=== PATIENT | male | born 1970 | race Hispanic/Latino ===

== ENCOUNTER 2020-07-26 19:00 | Observation (INO) | payer OTHER ==
[~2020-07-26 19:00] MED LIST: INSULIN REGULAR, HUMAN 100 UNITS/1 ML ONE
[2020-07-26 20:31] LABS: Basophils # (Auto) 0.1 K/mm3 (0.0-0.1); Basophils % (Auto) 0.8 % (0.0-1.8); Eosinophils # (Auto) 0.1 K/mm3 (0.0-0.4); Eosinophils % (Auto) 1.9 % (0.0-4.3); Hemoglobin 11.6 gm/dl (11.8-15.2); Lymphocytes # (Auto) 1.2 K/mm3 (1.2-5.4); Lymphocytes % (Auto) 15.2 % (13.4-35.0); Mean Corpuscular HGB Conc 34 % (32-34); Mean Corpuscular Volume 90 fl (84-94); Monocytes # (Auto) 0.9 K/mm3 (0.0-0.8); Monocytes % (Auto) 10.9 % (0.0-7.3); Platelet Count 311 K/mm3 (140-440); Red Blood Count 3.77 M/mm3 (3.65-5.03); Red Cell Distribution Width 13.2 % (13.2-15.2)
--- NOTE | 2020-07-26 20:44 | XRay Report ---
XR chest routine 2V INDICATION / CLINICAL INFORMATION: Chest Pain. COMPARISON: 03/11/2020 FINDINGS: SUPPORT DEVICES: None. HEART /PULMONARY VASCULATURE: No significant abnormality. LUNGS / PLEURA: No significant pulmonary or pleural abnormality. No pneumothorax. ADDITIONAL FINDINGS: No significant additional findings. IMPRESSION: 1. No acute findings. Signer Name: Kasi Ware MD Signed: 07/26/2020 8:39 PM Workstation Name: [id number]
[2020-07-26 20:59] LABS: Alanine Aminotransferase 27 units/L (7-56); Albumin 4.3 g/dL (3.9-5); BUN/Creatinine Ratio 16; Blood Urea Nitrogen 33 mg/dL (9-20); Calcium 9.5 mg/dL (8.4-10.2); Hemolysis Index 9
--- NOTE | 2020-07-26 21:43 | Emergency Department Report ---
ED Chest Pain HPI - General Chief Complaint: Chest Pain Stated Complaint: CHEST PAIN Time Seen by Provider: 07/26/20 21:04 Source: patient Mode of arrival: Ambulatory Limitations: No Limitations - History of Present Illness Initial Comments: 49-year-old male, history of hypertension, hypercholesterolemia, presents to ED with chest pain. Patient states he was at work and began to experience chest pain around 2:30 PM. Patient states pain is located in the substernal area, pressure-like in nature, nonradiating. He reports some associated palpitations, shortness of breath, nausea, and diaphoresis. Patient denies any leg pain or swelling. Patient states at some point, he began to feel dizzy and lightheaded so he went to his truck to check his blood pressure. Patient reports his blood pressure was 178/110, and his heart rate was elevated. Patient states he normally takes clonidine, amlodipine, lisinopril, and HCTZ. Patient states he had already taken these medications this morning, however, when he saw that his blood pressure was elevated, he took another dose of all 4 of his BP meds. Patient states chest pain is very minimal right now. He denies any tobacco or drug use. He denies any Covid-like symptoms. MD Complaint: chest pain -: This afternoon Onset: during rest Pain Location: substernal Pain Radiation: none Severity: moderate Quality: pressure Consistency: constant Improves With: nothing Worsens With: nothing re: nausea, diaphoresis, dyspnea. denies: vomting Other Symptoms: palpitations. denies: cough, fever, leg swelling - Related Data Previous Rx's Medication Instructions Recorded Last Taken Type Azithromycin [Zithromax Z-MAGGIE] 250 mg PO ONCE #1 pack 03/11/20 Unknown Rx Prednisone [predniSONE 10 mg 10 mg PO .TAPER #1 tab.ds.pk 03/11/20 Unknown Rx (6-Day Pack, 21 Tabs)] Promethazine [Phenergan] 25 mg PO Q6HR PRN #20 tab 03/11/20 Unknown Rx Allergies Allergy/AdvReac Type Severity Reaction Status Date / Time No Known Allergies Allergy Unverified 03/11/20 14:40 Heart Score - HEART Score History: Moderately suspicious EKG: Normal Age: 45-65 Risk factors: 1-2 risk factors Troponin: 1-3x normal limit HEART Score: 4 ED Review of Systems ROS: Stated complaint: CHEST PAIN Other details as noted in HPI Comment: All other systems reviewed and negative Constitutional: denies: fever Respiratory: shortness of breath. denies: cough Cardiovascular: chest pain, palpitations Gastrointestinal: nausea. denies: vomiting Musculoskeletal: other (Denies leg pain or swelling) ED Past Medical Hx - Past Medical History Hx Hypertension: Yes Additional medical history: HLD - Surgical History Past Surgical History?: Yes Additional Surgical History: shoulder, melanoma removed - Social History Smoking Status: Never Smoker - Medications Home Medications: Home Medications Medication Instructions Recorded Confirmed Last Taken Type Azithromycin [Zithromax Z-MAGGIE] 250 mg PO ONCE #1 pack 03/11/20 Unknown Rx Prednisone [predniSONE 10 mg 10 mg PO .TAPER #1 tab.ds.pk 03/11/20 Unknown Rx (6-Day Pack, 21 Tabs)] Promethazine [Phenergan] 25 mg PO Q6HR PRN #20 tab 03/11/20 Unknown Rx ED Physical Exam - General Limitations: No Limitations General appearance: alert, in no apparent distress - Head Head exam: Present: atraumatic, normocephalic - Eye Eye exam: Present: normal appearance, EOMI - ENT ENT exam: Present: mucous membranes moist - Neck Neck exam: Present: normal inspection - Respiratory Respiratory exam: Present: normal lung sounds bilaterally. Absent: respiratory distress - Cardiovascular Cardiovascular Exam: Present: regular rate, normal rhythm - GI/Abdominal GI/Abdominal exam: Present: soft. Absent: distended, tenderness - Extremities Exam Extremities exam: Present: normal inspection - Neurological Exam Neurological exam: Present: alert, oriented X3 - Psychiatric Psychiatric exam: Present: normal affect, normal mood - Skin Skin exam: Present: warm, dry, intact, normal color ED Course Vital Signs 07/26/20 07/26/20 07/26/20 19:04 21:39 21:41 Temperature 97.4 F L Pulse Rate 94 H 74 Pulse Rate [ Bilateral] Respiratory 14 14 14 Rate Respiratory Rate [Bilateral ] Blood Pressure 98/60 77/41 90/51 Blood Pressure [Left] O2 Sat by Pulse 98 96 Oximetry 07/26/20 07/26/20 07/26/20 22:03 22:30 23:00 Temperature Pulse Rate 79 Pulse Rate [ Bilateral] Respiratory 17 Rate Respiratory Rate [Bilateral ] Blood Pressure 87/43 98/58 98/58 Blood Pressure [Left] O2 Sat by Pulse Oximetry 07/26/20 07/26/20 07/26/20 23:20 23:30 23:35 Temperature 98.1 F Pulse Rate 80 108 H Pulse Rate [ 80 Bilateral] Respiratory 11 L 15 Rate Respiratory 22 Rate [Bilateral ] Blood Pressure 103/52 Blood Pressure 100/58 [Left] O2 Sat by Pulse 98 Oximetry 07/26/20 07/26/20 07/26/20 23:40 23:50 23:57 Temperature 98.1 F Pulse Rate 146 H 139 H 123 H Pulse Rate [ Bilateral] Respiratory 15 18 18 Rate Respiratory Rate [Bilateral ] Blood Pressure 100/58 127/56 Blood Pressure 127/56 [Left] O2 Sat by Pulse 97 99 Oximetry 07/27/20 07/27/20 07/27/20 00:00 00:10 00:20 Temperature Pulse Rate 116 H 98 H 102 H Pulse Rate [ Bilateral] Respiratory 17 18 15 Rate Respiratory Rate [Bilateral ] Blood Pressure 103/44 112/46 103/52 Blood Pressure [Left] O2 Sat by Pulse 99 86 93 Oximetry 07/27/20 00:30 Temperature Pulse Rate 85 Pulse Rate [ Bilateral] Respiratory 13 Rate Respiratory Rate [Bilateral ] Blood Pressure 95/46 Blood Pressure [Left] O2 Sat by Pulse 93 Oximetry ED Medical Decision Making - Lab Data Result diagrams: 07/26/20 20:20 07/26/20 21:28 - EKG Data -: EKG Interpreted by Ne EKG shows normal: sinus rhythm, axis, intervals, QRS complexes, ST-T waves Rate: normal - EKG Data Interpretation: no acute changes - Radiology Data Radiology results: report reviewed, image reviewed - Medical Decision Making 49-year-old male presents the ED with chest pain. Patient happens to be hypotensive secondary to taking double dose of all 4 of his antihypertensives. EKG shows no ST changes. Troponin is within normal limits. Chest x-ray is normal. Labs do show evidence of acute renal failure with creatinine elevated compared to 4 months ago. He has been given 2 L bolus of IV fluids for his hypotension and acute renal failure. Patient also has potassium of 6.0, repeat confirms hyperkalemia at 5.8. Patient given treatment for hyperkalemia including albuterol, insulin, D50, Kayexalate, calcium gluconate. 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 Patient will be admitted to Dr. Gonzalez, hospitalist for further management - Differential Diagnosis ACS, renal failure, infection Critical Care Time: Yes Critical care time in (mins) excluding proc time.: 35 Critical care attestation.: If time is entered above; I have spent that time in minutes in the direct care of this critically ill patient, excluding procedure time. Critical Care Time: 35 min ED Disposition Clinical Impression: Hypotension, Chest pain, Hyperkalemia, Acute renal failure Disposition: 09 OP ADMIT IP TO THIS HOSP Is pt being admited?: Yes Condition: Stable Time of Disposition: 23:01
[2020-07-26] MEDS ORDERED: SODIUM CHLORIDE 0.9% 1000 ML 1,000 ML IV ONE ×2 (21:44→22:16)
[2020-07-26] MEDS ORDERED: INSULIN REGULAR, HUMAN 100 UNIT/ML 3ML VIAL IV ONE (22:17)
[2020-07-26] MEDS ORDERED: ALBUTEROL 2.5 MG/3 ML NEBU IH ONE (22:17)
[2020-07-26] MEDS ORDERED: CALCIUM GLUCONATE 1,000 MG in SODIUM CHLORIDE 0.9% 100 ML IV ONE (22:17)
[2020-07-26] MEDS ORDERED: DEXTROSE 50% IN WATER (25GM) 50 ML SYRINGE IV ONE (22:17)
[2020-07-26] MEDS ORDERED: SODIUM POLYSTYRENE 15 GM/60 ML ORAL LIQD PO ONE (22:17)
[2020-07-26] MEDS ORDERED: MORPHINE 2 MG/1 ML INJ ONE (23:39)
[2020-07-26] MEDS ORDERED: ONDANSETRON 4 MG/2 ML INJ ONE (23:52)
[2020-07-26] MEDS ORDERED: ALPRAZolam 0.25 MG TAB ONE (23:57)
[2020-07-26] MEDS ORDERED: ALPRAZolam 0.25 MG TAB PO STA (23:59)
[2020-07-26] MEDS ORDERED: ONDANSETRON 4 MG/2 ML INJ IV ONE (23:59)
[2020-07-27] MEDS ORDERED: SODIUM CHLORIDE 0.9% 1000 ML 1,000 ML IV ONE (00:11)
--- NOTE | 2020-07-27 00:11 | History and Physical Report ---
History of Present Illness Date of examination: 07/26/20 Date of admission: 07/26/20 23:02 Chief complaint: Chest Pain History of present illness: 49-year-old white male with known history of hypertension, hyperlipidemia presenting to the emergency room today complaining of chest pain. Chest pain is central status sometime this afternoon while at work. Pain is substernal, felt like pressure in nature. He had associated dizziness, shortness of breath, nausea and diaphoresis. He denies any palpitation, he denies any headache, no fever or chills, denies any sick contacts and no recent travel. Denies any contact with anyone with COVID-19. Patient indicates he has been compliant with his medications however when he rechecked his blood pressure while at work the blood pressure was said to be high with systolic of 178 and diastolic of 110. He therefore decided to take all his medications all over again. His medications include clonidine, amlodipine, lisinopril, and hydrochlorothiazide. Upon arrival in the emergency room patient was found to be hypotensive with systolic in the 90s and diastolic in the in the 50s. Patient received boluses of IV fluid was improvement in his blood pressure. Work-up in the emergency room so far reveals hyperkalemia of 6, elevated BUN and creatinine. EKG did not reveal any acute abnormality. Chest x-ray within normal limits. Patient has been placed on insulin and glucose, calcium gluconate and Kayexalate for his hyperkalemia. During the course of his stay in the emergency room patient became anxious and tachycardic. He states that he has a history of anxiety and takes klonopin at home. His repeat EKG shows sinus tachycardia. Patient has been admitted for chest pain, hyperkalemia and BETTIE. Past History Past Medical History: hypertension, hyperlipidemia Past Surgical History: Other (Melanoma removal, Shoulder Surgery) Social history: no significant social history Family history: CAD (Grand Mother of [place] at age 49), diabetes (Father had hypertension and D/mellitus,), hypertension (Both parents had hypertension.) Medications and Allergies Allergies Allergy/AdvReac Type Severity Reaction Status Date / Time No Known Allergies Allergy Unverified 03/11/20 14:40 Home Medications Medication Instructions Recorded Confirmed Last Taken Type Azithromycin [Zithromax Z-MAGGIE] 250 mg PO ONCE #1 pack 03/11/20 Unknown Rx Prednisone [predniSONE 10 mg 10 mg PO .TAPER #1 tab.ds.pk 03/11/20 Unknown Rx (6-Day Pack, 21 Tabs)] Promethazine [Phenergan] 25 mg PO Q6HR PRN #20 tab 03/11/20 Unknown Rx Review of Systems Constitutional: no fever, no chills Ears, nose, mouth and throat: no nasal congestion, no sore throat Cardiovascular: chest pain, shortness of breath Respiratory: shortness of breath, no cough Gastrointestinal: nausea, no abdominal pain, no vomiting, no diarrhea Genitourinary Male: no dysuria, no hematuria, no flank pain, no nocturia Musculoskeletal: no neck pain, no low back pain Integumentary: no rash, no pruritis Neurological: no headaches, no confusion Psychiatric: anxiety, no depression Exam - Constitutional Vitals: Temp Pulse Resp BP Pulse Ox 98.1 F 123 H 18 127/56 99 07/26/20 23:57 07/26/20 23:57 07/26/20 23:57 07/26/20 23:57 07/26/20 23:57 General appearance: Present: no acute distress, well-nourished - EENT Eyes: Present: PERRL, EOM intact. Absent: scleral icterus ENT: hearing intact, clear oral mucosa, dentition normal - Respiratory Respiratory effort: normal Respiratory: bilateral: CTA - Cardiovascular Rhythm: regular Heart Sounds: Present: S1 & S2. Absent: gallop, systolic murmur, diastolic murmur, rub - Extremities Extremities: no ischemia, pulses intact, pulses symmetrical, No edema, Full ROM Peripheral Pulses: within normal limits - Abdominal General gastrointestinal: Present: soft, non-tender, non-distended, normal bowel sounds. Absent: mass - Integumentary Integumentary: Present: clear, warm, dry. Absent: rash - Musculoskeletal Musculoskeletal: strength equal bilaterally - Psychiatric Psychiatric: appropriate mood/affect, intact judgment & insight, memory intact, cooperative - Neurologic Neurologic: CNII-XII intact, no focal deficits, moves all extremities HEART Score - HEART Score History: Moderately suspicious EKG: Non-specific Age: 45-65 Risk factors: 1-2 risk factors Troponin: Troponin T 0.011 ng/mL (0.00-0.029) 07/26/20 20:20 Troponin: < normal limit HEART Score: 4 Results - Labs CBC & Chem 7: 07/26/20 20:20 07/26/20 21:28 Labs: Abnormal lab results 07/26/20 07/26/20 07/26/20 Range/Units 20:20 20:20 21:28 Hgb 11.6 L (11.8-15.2) gm/dl Hct 34.0 L (35.5-45.6) % [place] % (Auto) 10.9 H (0.0-7.3) % [place] # (Auto) 0.9 H (0.0-0.8) K/mm3 Seg Neutrophils % 71.2 H (40.0-70.0) % Sodium 134 L (137-145) mmol/L Potassium 6.0 H 5.8 H (3.6-5.0) mmol/L BUN 33 H (9-20) mg/dL Creatinine 2.1 H (0.8-1.3) mg/dL AST 41 H (5-40) units/L Assessment and Plan - Patient Problems (1) Chest pain Current Visit: Yes Status: Acute Plan to address problem: We will place patient on telemetry. Will check serial cardiac enzymes. Patient placed on aspirin, sublingual nitroglycerin and IV morphine as needed for chest pain. We will continue to monitor EKG Consult to be placed to cardiology for evaluation and recommendation. 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 Patient will be promptly evaluated. (3) Hyperkalemia Current Visit: Yes Status: Acute Plan to address problem: Patient has had calcium gluconate, insulin and glucose and Kayexalate in the emergency room. Will monitor potassium levels. (4) Hypotension Current Visit: Yes Status: Acute Plan to address problem: Possibly secondary to intake multiple doses of his blood pressure medication. We will hold off on antihypertensive at this time and continue IV fluid. Will monitor vital signs closely. (5) DVT prophylaxis Current Visit: Yes Status: Acute Plan to address problem: Patient placed on subcutaneous Lovenox. (6) Full code status Current Visit: Yes Status: Acute
[2020-07-27] MEDS ORDERED: SODIUM CHLORIDE 0.9% 1000 ML 1,000 ML ONE (00:15)
[2020-07-27] MEDS ORDERED: NITROGLYCERIN 0.4 MG TAB SUBL SL PRN (00:17)
[2020-07-27] MEDS ORDERED: ONDANSETRON 4 MG/2 ML INJ IV PRN (00:17)
[2020-07-27] MEDS ORDERED: MORPHINE 2 MG/1 ML INJ IV PRN (00:17)
[2020-07-27] MEDS ORDERED: ACETAMINOPHEN 325 MG TAB PO PRN ×2 (00:17)
[2020-07-27] MEDS ORDERED: SODIUM CHLORIDE 0.9% 1000 ML 1,000 ML IV SCH (00:30)
[2020-07-27 02:37] LABS: Basophils % (Auto) 0.6 % (0.0-1.8); Eosinophils # (Auto) 0.2 K/mm3 (0.0-0.4); Eosinophils % (Auto) 2.6 % (0.0-4.3); Hematocrit 30.6 % (35.5-45.6); Hemoglobin 10.6 gm/dl (11.8-15.2); Lymphocytes % (Auto) 14.7 % (13.4-35.0); Mean Corpuscular HGB Conc 35 % (32-34); Mean Corpuscular Volume 90 fl (84-94); Monocytes # (Auto) 0.8 K/mm3 (0.0-0.8); Monocytes % (Auto) 11.9 % (0.0-7.3); Platelet Count 269 K/mm3 (140-440); Red Blood Count 3.38 M/mm3 (3.65-5.03); Red Cell Distribution Width 13.2 % (13.2-15.2)
[2020-07-27 03:47] LABS: BUN/Creatinine Ratio 14; Blood Urea Nitrogen 28 mg/dL (9-20); Calcium 8.9 mg/dL (8.4-10.2); Chol/HDL Ratio 10.47 %; HDL Cholesterol 19 mg/dL (40-59); Hemolysis Index 7; LDL Cholesterol,Direct TNR mg/dL (50-130)
[2020-07-27 09:10] VITALS: BP 109/61
--- NOTE | 2020-07-27 09:30 | Consultation ---
History of Present Illness Consult date: 07/27/20 Consult reason: chest pain History of present illness: 49 year old male presenting with retrosternal chest pain associated with dizziness. Pain started while at work. Pain is non-radiating. Patient has past medical history of hypertension. He was admitted with chest pain back Sep 2018 at [place] and received stress and echo - both were within normal limits. ECG here showing normal sinus rhythm and troponin negative x 2. Patient describes short ness of breath with exertion. Labs also pertinent for BETTIE and hyperkalemia. Past History Past Medical History: hypertension, hyperlipidemia Past Surgical History: Other (Melanoma removal, Shoulder Surgery) Social history: no significant social history Family history: CAD (Grand Mother of [place] at age 49), diabetes (Father had hypertension and D/mellitus,), hypertension (Both parents had hypertension.) Medications and Allergies Allergies Allergy/AdvReac Type Severity Reaction Status Date / Time No Known Allergies Allergy Unverified 03/11/20 14:40 Home Medications Medication Instructions Recorded Confirmed Last Taken Type Azithromycin [Zithromax Z-MAGGIE] 250 mg PO ONCE #1 pack 03/11/20 Unknown Rx Prednisone [predniSONE 10 mg 10 mg PO .TAPER #1 tab.ds.pk 03/11/20 Unknown Rx (6-Day Pack, 21 Tabs)] Promethazine [Phenergan] 25 mg PO Q6HR PRN #20 tab 03/11/20 Unknown Rx Active Meds: Active Medications Acetaminophen (Tylenol) 650 mg PO Q4H PRN PRN Reason: Pain MILD(1-3)/Fever >100.5/ADAMS Aspirin (Ecotrin) 325 mg PO QDAY PARI Sodium Chloride (Nacl 0.9% 1000 Ml) 1,000 mls @ 125 mls/hr IV DIRECT PARI Morphine Sulfate (Morphine) 2 mg IV Q5MIN PRN PRN Reason: Chest Pain Last Admin: 07/26/20 23:40 Dose: 2 mg Documented by: Nitroglycerin (Nitrostat) 0.4 mg SL Q5M PRN PRN Reason: Chest Pain Ondansetron HCl (Zofran) 4 mg IV Q8H PRN PRN Reason: Nausea And Vomiting Last Admin: 07/26/20 23:55 Dose: 4 mg Documented by: Sodium Chloride (Sodium Chloride Flush Syringe 10 Ml) 10 ml IV BID PARI Sodium Chloride (Sodium Chloride Flush Syringe 10 Ml) 10 ml IV PRN PRN PRN Reason: LINE FLUSH Review of Systems All systems: negative Physical Examination Vital Signs Temp Pulse Resp BP Pulse Ox 97.4 F L 94 H 14 98/60 98 07/26/20 19:04 07/26/20 19:04 07/26/20 19:04 07/26/20 19:04 07/26/20 19:04 General appearance: no acute distress Neck: Positive: neck supple Cardiac: Positive: Reg Rate and Rhythm Lungs: Positive: Normal Exam Neuro: Positive: Grossly Intact Abdomen: Positive: Soft Extremities: Absent: edema Results 07/27/20 01:55 07/27/20 01:55 Cardiac Enzymes 07/26/20 Range/Units 20:20 AST 41 H (5-40) units/L Lipids 07/27/20 Range/Units 01:55 Triglycerides 486 H (2-149) mg/dL Cholesterol 199 (50-199) mg/dL HDL Cholesterol 19 L (40-59) mg/dL Cholesterol/HDL Ratio 10.47 % CBC 07/26/20 07/27/20 Range/Units 20:20 01:55 WBC 7.8 6.9 (4.5-11.0) K/mm3 RBC 3.77 3.38 L (3.65-5.03) M/mm3 Hgb 11.6 L 10.6 L (11.8-15.2) gm/dl Hct 34.0 L 30.6 L (35.5-45.6) % Plt Count 311 269 (140-440) K/mm3 Lymph # (Auto) 1.2 1.0 L (1.2-5.4) K/mm3 [place] # (Auto) 0.9 H 0.8 (0.0-0.8) K/mm3 Eos # (Auto) 0.1 0.2 (0.0-0.4) K/mm3 Baso # (Auto) 0.1 0.0 (0.0-0.1) K/mm3 Comprehensive Metabolic Panel 07/26/20 07/26/20 07/27/20 Range/Units 20:20 21:28 01:55 Sodium 134 L 135 L (137-145) mmol/L Potassium 6.0 H 5.8 H 5.3 H (3.6-5.0) mmol/L Chloride 99.7 103.3 (98-107) mmol/L Carbon Dioxide 24 23 (22-30) mmol/L BUN 33 H 28 H (9-20) mg/dL Creatinine 2.1 H 2.0 H (0.8-1.3) mg/dL Glucose 75 97 (75-100) mg/dL Calcium 9.5 8.9 (8.4-10.2) mg/dL AST 41 H (5-40) units/L ALT 27 (7-56) units/L Alkaline Phosphatase 65 (35-129) units/L Total Protein 6.9 (6.3-8.2) g/dL Albumin 4.3 (3.9-5) g/dL - EKG Interpretation EKG: sinus rhythm EKG interpretations - Telemetry EKG Rhythm: Sinus Rhythm Assessment and Plan Chest Pain Acute renal failure Hyperkalemia Essential primary hypertension Anemia Stress test 10/17 at [facility] - Normal Echo 10/17 at [facility] - normal LVEF Echo this admission showing normal LVEF Recommendations: Due to underlying BETTIE, we will proceed with stress testing in am instead of invasive coronary angio
--- NOTE | 2020-07-27 11:13 | Consultation ---
History of Present Illness - Reason for Consult Consult date: 07/27/20 acute renal failure, hyperkalemia Past History Past Medical History: hypertension, hyperlipidemia Past Surgical History: Other (Melanoma removal, Shoulder Surgery) Social history: no significant social history Family history: CAD (Grand Mother of [place] at age 49), diabetes (Father had hypertension and D/mellitus,), hypertension (Both parents had hypertension.) Medications and Allergies Allergies Allergy/AdvReac Type Severity Reaction Status Date / Time No Known Allergies Allergy Unverified 03/11/20 14:40 Home Medications Medication Instructions Recorded Confirmed Last Taken Type Azithromycin [Zithromax Z-MAGGIE] 250 mg PO ONCE #1 pack 03/11/20 Unknown Rx Prednisone [predniSONE 10 mg 10 mg PO .TAPER #1 tab.ds.pk 03/11/20 Unknown Rx (6-Day Pack, 21 Tabs)] Promethazine [Phenergan] 25 mg PO Q6HR PRN #20 tab 03/11/20 Unknown Rx Active Meds: Active Medications Acetaminophen (Tylenol) 650 mg PO Q4H PRN PRN Reason: Pain MILD(1-3)/Fever >100.5/ADAMS Aspirin (Ecotrin) 325 mg PO QDAY PARI Sodium Chloride (Nacl 0.9% 1000 Ml) 1,000 mls @ 125 mls/hr IV DIRECT PARI Morphine Sulfate (Morphine) 2 mg IV Q5MIN PRN PRN Reason: Chest Pain Last Admin: 07/26/20 23:40 Dose: 2 mg Documented by: Nitroglycerin (Nitrostat) 0.4 mg SL Q5M PRN PRN Reason: Chest Pain Ondansetron HCl (Zofran) 4 mg IV Q8H PRN PRN Reason: Nausea And Vomiting Last Admin: 07/26/20 23:55 Dose: 4 mg Documented by: Sodium Chloride (Sodium Chloride Flush Syringe 10 Ml) 10 ml IV BID PARI Sodium Chloride (Sodium Chloride Flush Syringe 10 Ml) 10 ml IV PRN PRN PRN Reason: LINE FLUSH Exam - Vital Signs Vital signs: Vital Signs Temp Pulse Resp BP Pulse Ox 97.4 F L 94 H 14 98/60 98 07/26/20 19:04 07/26/20 19:04 07/26/20 19:04 07/26/20 19:04 07/26/20 19:04 Results - Lab Results 07/27/20 01:55 07/27/20 01:55 Most recent lab results Calcium 8.9 mg/dL (8.4-10.2) 07/27/20 01:55
--- NOTE | 2020-07-27 12:47 | Event Note ---
Date: 07/27/20 Patient left AMA.
--- NOTE | 2020-07-27 13:08 | Event Note ---
Date: 07/27/20 Patient left AMA before I saw him.
[2020-07-28] MEDS ORDERED: ASPIRIN EC 325 MG TAB PO SCH (10:00)
== END 2020-07-27 18:30 | disposition home or self-care (01) ==
LOC: ED 19:00 → 4A 23:02
PROVIDERS: ADMIT Internal Medicine Geriatric Medicine; ATTEND Internal Medicine
DX: N17.9 Acute kidney failure, unspecified (principal); I95.9 Hypotension, unspecified; E87.5 Hyperkalemia; I10 Essential (primary) hypertension; D64.9 Anemia, unspecified; E78.5 Hyperlipidemia, unspecified; R07.89 Other chest pain; Z98.890 Other specified postprocedural states; Z79.4 Long term (current) use of insulin; Z79.82 Long term (current) use of aspirin
CPT/HCPCS: 36415; 71046; 80048; 80053; 80061; 84132; 84484; 85025; 93005; 93306; 94644; 96361; 96365; 96375; 99291; G0378; J0610; J2270; J2405; J7030; J1815

== ENCOUNTER 2021-04-24 09:16 | Emergency (ER) | payer OTHER ==
[2021-04-24 09:24] VITALS: BP 124/78
[2021-04-24] MEDS ORDERED: ASPIRIN 325 MG TAB PO ONE (09:25)
--- NOTE | 2021-04-24 09:46 | XRay Report ---
CHEST 2 VIEWS INDICATION / CLINICAL INFORMATION: cp and sob; hx chronic kidney disease. COMPARISON: 07/26/2020 FINDINGS: SUPPORT DEVICES: None. HEART / MEDIASTINUM: No significant abnormality. LUNGS / PLEURA: No significant pulmonary or pleural abnormality. No pneumothorax. ADDITIONAL FINDINGS: No significant additional findings. IMPRESSION: 1. No acute findings. Signer Name: Alon Barrett MD Signed: 04/24/2021 9:42 AM Workstation Name: [id number]
--- NOTE | 2021-04-24 10:30 | Electrocardiograph Report ---
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
[2021-04-24 11:32] LABS: Basophils # (Auto) 0.1 K/mm3 (0.0-0.1); Basophils % (Auto) 0.9 % (0.0-1.8); Eosinophils # (Auto) 0.4 K/mm3 (0.0-0.4); Eosinophils % (Auto) 4.9 % (0.0-4.3); Hematocrit 32.4 % (35.5-45.6); Hemoglobin 11.1 gm/dl (11.8-15.2); Lymphocytes # (Auto) 2.4 K/mm3 (1.2-5.4); Mean Corpuscular HGB Conc 34 % (32-34); Mean Corpuscular Volume 91 fl (84-94); Monocytes # (Auto) 0.8 K/mm3 (0.0-0.8); Monocytes % (Auto) 11.1 % (0.0-7.3); Platelet Count 324 K/mm3 (140-440); Red Blood Count 3.57 M/mm3 (3.65-5.03); Red Cell Distribution Width 14.2 % (13.2-15.2)
[2021-04-24 12:30] LABS: Alanine Aminotransferase 18 units/L (7-56); Albumin 4.4 g/dL (3.9-5); BUN/Creatinine Ratio 19; Blood Urea Nitrogen 27 mg/dL (9-20); Calcium 9.7 mg/dL (8.4-10.2); Hemolysis Index 9
== END 2021-04-24 10:15 | disposition home or self-care (01) ==
LOC: ED 09:16
DX: R07.9 Chest pain, unspecified (principal); Z53.21 Procedure and treatment not carried out due to patient leaving prior to being seen by health care provider
CPT/HCPCS: 36415; 71046; 80053; 84484; 85025; 93005

== ENCOUNTER 2021-06-30 01:32 | Emergency (ER) | payer OTHER ==
[2021-06-30 02:42] LABS: Basophils # (Auto) 0.1 K/mm3 (0.0-0.1); Basophils % (Auto) 0.5 % (0.0-1.8); Eosinophils # (Auto) 0.2 K/mm3 (0.0-0.4); Eosinophils % (Auto) 1.4 % (0.0-4.3); Hematocrit 35.1 % (35.5-45.6); Hemoglobin 11.5 gm/dl (11.8-15.2); Lymphocytes # (Auto) 2.5 K/mm3 (1.2-5.4); Lymphocytes % (Auto) 15.5 % (13.4-35.0); Mean Corpuscular HGB Conc 33 % (32-34); Mean Corpuscular Volume 90 fl (84-94); Monocytes # (Auto) 1.7 K/mm3 (0.0-0.8); Monocytes % (Auto) 10.3 % (0.0-7.3); Platelet Count 513 K/mm3 (140-440); Red Blood Count 3.92 M/mm3 (3.65-5.03); Red Cell Distribution Width 12.6 % (13.2-15.2)
[2021-06-30 03:05] LABS: Albumin 3.8 g/dL (3.9-5); Calcium 9.2 mg/dL (8.4-10.2)
[2021-06-30] MEDS ORDERED: IPRATROPIUM 0.02% NEBU 2.5 ML IH ONE (03:33)
[2021-06-30] MEDS ORDERED: methylPREDNISolone Sod Succinate 125 MG/2 ML INJ IV ONE (03:33)
[2021-06-30] MEDS ORDERED: ALBUTEROL 2.5 MG/3 ML NEBU IH ONE (03:33)
[2021-06-30] MEDS ORDERED: FAMOTIDINE 20 MG/2 ML INJ IV ONE (03:33)
--- NOTE | 2021-06-30 04:15 | XRay Report ---
CHEST PA AND LATERAL VIEWS INDICATION: COUGH, WEAKNESS, DYSPNEA. COMPARISON: 04/24/2021 FINDINGS: Support devices: None. Heart: Within normal limits. Lungs/Pleura: Moderate, somewhat airspace opacities are seen in the right mid to lower lung. Left tita g is clear. IMPRESSION: 1. Mild right lower lobe pneumonia. Signer Name: Ervin Núñez MD Signed: 06/30/2021 4:10 AM Workstation Name: [id number]
[2021-06-30] MEDS ORDERED: AZITHROMYCIN 250 MG TAB PO ONE (05:06)
[2021-06-30] MEDS ORDERED: cefTRIAXone/NS 1 GM/50 ML 1 GM/50 ML BAG IV ONE (05:06)
[2021-06-30] MEDS ORDERED: SODIUM CHLORIDE 0.9% 1000 ML 1,000 ML ONE (05:41)
[2021-06-30] MEDS ORDERED: SODIUM CHLORIDE 0.9% 1000 ML 1,000 ML IV ONE (05:46)
[2021-06-30] MEDS ORDERED: SODIUM CHLORIDE 0.9% 1000 ML IV SOLN IV ONE (06:27)
--- NOTE | 2021-06-30 06:59 | Emergency Department Report ---
HPI - General Chief Complaint: Weakness Time Seen by Provider: 06/30/21 06:01 - HPI HPI: This is a 50-year-old male presents to the emergency department with a complaint of some dizziness and lightheadedness that started last night. He says that there has been some nausea with mild vomiting, a mild mixed dry and productive cough and generalized weakness. The patient denies any fever, chest pain, shortness of breath, lower extremity swelling, rash. He has not taken anything for symptoms prior to presentation. He has a past medical history of hypertension and hyperlipidemia. This patient presented to the emergency department overnight, prior to my shift starting. He had relatively reassuring vitals initially. By the time my shift has started the patient has developed some hypotension. Labs show a leukocytosis of about 16,000 and a lactic acidosis. I discussed with the patient regarding signs of sepsis. He has already received antibiotics and I have ordered the IV fluid at 30 cc/kg. The patient says that he has to go and open his home for [employer] "or else they are going to charge me $6000." We had a long discussion regarding sepsis and have reviewed all of his lab and imaging results and I have made it clear that it is my intention and recommendation that the patient be admitted to this hospital. The patient says that he has to leave just before 9 AM and will return immediately. I told him that is not protocol and is not recommended. I will continue to treat his symptoms and the septic condition is much as possible before the patient will most likely sign out AMA. ED Past Medical Hx - Past Medical History Hx Hypertension: Yes Additional medical history: HLD - Surgical History Additional Surgical History: shoulder, melanoma removed - Social History Smoking Status: Never Smoker - Medications Home Medications: Home Medications Medication Instructions Recorded Confirmed Last Taken Type Azithromycin [Zithromax Z-MAGGIE] 250 mg PO ONCE #1 pack 03/11/20 Unknown Rx Prednisone [predniSONE 10 mg 10 mg PO .TAPER #1 tab.ds.pk 03/11/20 Unknown Rx (6-Day Pack, 21 Tabs)] Promethazine [Phenergan] 25 mg PO Q6HR PRN #20 tab 03/11/20 Unknown Rx ED Review of Systems ROS: Stated complaint: FEELING FAINT/DIZZINESS Other details as noted in HPI Comment: All other systems reviewed and negative Constitutional: weakness. denies: chills, fever Eyes: denies: eye pain, vision change ENT: denies: ear pain, throat pain Respiratory: cough. denies: shortness of breath Cardiovascular: denies: chest pain, palpitations Gastrointestinal: nausea, vomiting Genitourinary: denies: dysuria, discharge Musculoskeletal: denies: back pain, arthralgia Skin: denies: rash, lesions Neurological: other (Lightheadedness/dizziness). denies: headache Physical Exam - Physical Exam Vital Signs: Vital Signs 06/30/21 06/30/21 06/30/21 02:11 05:45 06:01 Pulse Rate 65 74 77 Respiratory 18 16 12 Rate Blood Pressure 75/41 84/44 Blood Pressure 123/94 [Right] O2 Sat by Pulse 93 98 98 Oximetry 06/30/21 06:15 Pulse Rate 69 Respiratory 14 Rate Blood Pressure 84/49 Blood Pressure [Right] O2 Sat by Pulse 95 Oximetry Physical Exam: GENERAL: The patient is well-developed well-nourished. HENT: Normocephalic. Atraumatic. Patient has moist mucous membranes. EYES: Extraocular motions are intact. NECK: Supple. Trachea is midline. CHEST/LUNGS: Clear to auscultation. There is no respiratory distress noted. HEART/CARDIOVASCULAR: Regular. There is no tachycardia. There is no murmur. ABDOMEN: Abdomen is soft, nontender. Patient has normal bowel sounds. There is no abdominal distention. SKIN: Skin is warm and dry. NEURO: The patient is awake, alert, and oriented. The patient is cooperative. The patient has no focal neurologic deficits. Normal speech. Cranial nerves II through XII grossly intact. MUSCULOSKELETAL: There is no tenderness or deformity. There is no limitation range of motion. ED Course Vital Signs 06/30/21 06/30/21 06/30/21 02:11 05:45 06:01 Pulse Rate 65 74 77 Respiratory 18 16 12 Rate Blood Pressure 75/41 84/44 Blood Pressure 123/94 [Right] O2 Sat by Pulse 93 98 98 Oximetry 06/30/21 06:15 Pulse Rate 69 Respiratory 14 Rate Blood Pressure 84/49 Blood Pressure [Right] O2 Sat by Pulse 95 Oximetry - Reevaluation(s) Reevaluation #1: 06/30/21 09:23 As previously mentioned, the patient says that he has to leave at 9 AM to go to his home to meet with [employer] to avoid a $6000 fee/payment. Once again I explained to the patient that he is too ill for discharge and needs to be admitted to the hospital with sepsis, hypotension, acute renal failure, and has developed some mild and/or transient hypoxia. The patient is awake, alert, oriented, AAO x3, and has a normal decision-making capacity. Therefore, despite understanding the risk involved, the patient has signed out and left AGAINST MEDICAL ADVICE. He claims that he will return to this emergency department immediately as soon as he has taken care of his personal business. ED Medical Decision Making - Lab Data Result diagrams: 06/30/21 02:30 06/30/21 02:30 - EKG Data -: EKG Interpreted by Me EKG shows normal: sinus rhythm, axis, intervals (Prolonged QT and QTc intervals), QRS complexes, ST-T waves Rate: normal - EKG Data When compared to previous EKG there are: no significant change Interpretation: unchanged when compared t (04/24/21) - Radiology Data Radiology results: report reviewed CHEST PA AND LATERAL VIEWS INDICATION: COUGH, WEAKNESS, DYSPNEA. COMPARISON: 04/24/2021 FINDINGS: Support devices: None. Heart: Within normal limits. Lungs/Pleura: Moderate, somewhat airspace opacities are seen in the right mid to lower lung. Left lung is clear. IMPRESSION: 1. Mild right lower lobe pneumonia. - Medical Decision Making This patient presents to the emergency department with a complaint of some generalized weakness, lightheaded and dizziness, mild mixed dry and productive cough that has been going on since last night. On examination the patient does not have any focal, motor or sensory deficits and his cranial nerves are intact. Heart and lung sounds are normal to auscultation and the patient does not appear in any respiratory distress. However, shortly after arrival the patient was found to have hypotension with a MAP of about 55. Patient's labs shows a leukocytosis of 16,000, mild hypokalemia with potassium 3.3, acute kidney failure with a GFR about 25, lactic acidosis of about 4.5 and elevated lipase. With the leukocytosis, lactic ac idosis and hypotension, there is concern for sepsis. Chest x-ray shows a mild right lower lobe pneumonia. We are still waiting for a urine sample for urinalysis as possible source of infection. Patient was given IV fluid resuscitation and empiric antibiotics. As previously discussed in this chart, the patient signed out AMA around 9 AM as he had to take care of some personal business. He is awake, alert, oriented and has a normal decision-making capacity. We discussed all of his labs and i maging studies, the concerns for sepsis, pneumonia, and he is even aware that he had developed some mild hypoxia. However, despite understanding all these risks the patient has signed out AGAINST MEDICAL ADVICE. He does understand that he can return to the emergency department immediately if he changes his mind about further evaluation and/or admission. Also, the patient says that he will return to the emergency department as soon as he is done with his personal business at home. Critical Care Time: No Critical care attestation.: If time is entered above; I have spent that time in minutes in the direct care of this critically ill patient, excluding procedure time. ED Disposition Clinical Impression: Hypokalemia Sepsis Qualifiers: Sepsis type: sepsis due to unspecified organism Sepsis acute organ dysfunction status: with acute organ dysfunction Severe sepsis acute organ dysfunction type: acute renal failure Acute renal failure type: unspecified Severe sepsis shock status: unspecified Qualified Code(s): A41.9 - Sepsis, unspecified organism Hypotension Qualifiers: Hypotension type: unspecified hypotension type Qualified Code(s): I95.9 - Hypotension, unspecified Acute renal failure Qualifiers: Acute renal failure type: unspecified Qualified Code(s): N17.9 - Acute kidney failure, unspecified Pneumonia Qualifiers: Pneumonia type: due to unspecified organism Laterality: right Lung location: lower lobe of lung Qualified Code(s): J18.9 - Pneumonia, unspecified organism Disposition: 07 LEFT AGAINST MEDICAL ADVICE Is pt being admited?: No Instructions: Bacterial Pneumonia (ED) Additional Instructions: Return to the emergency department immediately if you change your mind about further evaluation, treatment, and admission, or with any acute distress. Referrals: PRIMARY CAREMD [Primary Care Provider] - 3-5 Days Forms: AMA Form Time of Disposition: 11:46
--- NOTE | 2021-06-30 09:13 | Electrocardiograph Report ---
[facility] Test Date: 2021-06-30 Test Time: 05:33:50 Pat Name: MICHAEL CHRISTIANSEN Department: Room: Gender: M Medical Record Consultant: SUJIT : 1970 Requested By: MICHAEL DWYER Order Number: [id number] Reading MD: Joaquin Vásquez Measurements Intervals [place] Rate: 72 P: 46 ND: 160 QRS: 87 QRSD: 109 T: 76 QT: 479 QTc: 523 Interpretive Statements Sinus rhythm Prolonged QT interval nonspecific st-t Compared to ECG 04/24/2021 09:28:23 Prolonged QT interval now present Electronically Signed On 06-30-2021 9:13:24 EDT by Joaquin Vásquez
[2021-06-30 09:23] VITALS: BP 94/58
== END 2021-06-30 09:24 | disposition left against medical advice (07) ==
LOC: ED 01:32
DX: A41.9 Sepsis, unspecified organism (principal); J18.9 Pneumonia, unspecified organism; N17.9 Acute kidney failure, unspecified; E87.6 Hypokalemia; I95.9 Hypotension, unspecified; I10 Essential (primary) hypertension; E78.5 Hyperlipidemia, unspecified
CPT/HCPCS: 36415; 71046; 80053; 82140; 83690; 84484; 85025; 87040; 93005; 94640; 96361; 96365; 96375; 99285; J0696; J2930; J7030

== ENCOUNTER 2021-07-02 17:56 | Emergency (ER) | payer OTHER ==
[2021-07-02] MEDS ORDERED: LIDOCAINE VISCOUS 2% 15 ML ORAL LIQD PO ONE (18:47)
[2021-07-02] MEDS ORDERED: ONDANSETRON 4 MG ODT TAB PO ONE (18:47)
[2021-07-02] MEDS ORDERED: ALUM-MAG HYDROXIDE-SIMETHICONE 200-200-20MG/5ML ORAL LIQD 30 ML PO ONE (18:47)
[2021-07-02 19:35] LABS: Basophils % (Auto) 0.4 % (0.0-1.8); Eosinophils # (Auto) 0.1 K/mm3 (0.0-0.4); Eosinophils % (Auto) 0.7 % (0.0-4.3); Hematocrit 29.6 % (35.5-45.6); Hemoglobin 9.5 gm/dl (11.8-15.2); Lymphocytes # (Auto) 1.6 K/mm3 (1.2-5.4); Lymphocytes % (Auto) 11.3 % (13.4-35.0); Mean Corpuscular HGB Conc 32 % (32-34); Mean Corpuscular Volume 90 fl (84-94); Monocytes # (Auto) 1.3 K/mm3 (0.0-0.8); Monocytes % (Auto) 9.6 % (0.0-7.3); Platelet Count 403 K/mm3 (140-440); Red Blood Count 3.28 M/mm3 (3.65-5.03); Red Cell Distribution Width 13.2 % (13.2-15.2)
[2021-07-02 19:57] LABS: Alanine Aminotransferase 22 units/L (7-56); Albumin 3.3 g/dL (3.9-5); BUN/Creatinine Ratio 21; Blood Urea Nitrogen 31 mg/dL (9-20); Calcium 8.5 mg/dL (8.4-10.2); Hemolysis Index 4
[2021-07-02] MEDS ORDERED: SODIUM CHLORIDE 0.9% 1000 ML 1,000 ML IV ONE (20:41)
--- NOTE | 2021-07-02 20:41 | Event Note ---
ED Screening Note ED Screening Note: Abdominal pain nausea vomiting This is a 50-year-old male with history of hypertension, hyperlipidemia who presents with epigastric pain nausea vomiting for several weeks. Pain feels like a upset stomach. Radiates to the back. He denies alcohol or drug tobacco use. Pain is moderate in severity. Of note patient left AGAINST MEDICAL ADVICE and evaluated at this hospital 2 days ago. Patient had hypotension at that time. I reviewed the trauma record, patient had leukocytosis and acute kidney injury. Screening exam performed completed. Patient will need further work-up. My colleague will continue work-up and determine disposition.
[2021-07-02] MEDS ORDERED: ONDANSETRON 4 MG/2 ML INJ IV ONE (21:14)
--- NOTE | 2021-07-02 21:23 | Emergency Department Report ---
HPI - General Chief Complaint: Abdominal Pain Time Seen by Provider: 07/02/21 18:16 - HPI HPI: This is a 50-year-old male presents to the emergency department with complaint of nausea vomiting, epigastric abdominal pain, and a mixed dry and productive cough. I saw this patient in this emergency department 2 days ago with similar symptoms, along with lightheadedness and dizziness, and the patient left AMA at that time. Also at that time the patient had hypotension, a leukocytosis of about 16,000, some renal insufficiency, chest x-ray showing a mild right-sided pneumonia. Patient had said that he would return after taking care of some personal business but he obviously did not until this evening. Patient says that he has been unable to keep down any liquids or solids. He has a past medical history of hypertension and hyperlipidemia. No recent travel or sick contacts at home. He is not vaccinated against COVID-19. ED Past Medical Hx - Past Medical History Hx Hypertension: Yes Additional medical history: HLD - Surgical History Additional Surgical History: shoulder, melanoma removed - Social History Smoking Status: Never Smoker Substance Use Type: None - Medications Home Medications: Home Medications Medication Instructions Recorded Confirmed Last Taken Type Prednisone [predniSONE 10 mg 10 mg PO .TAPER #1 tab.ds.pk 03/11/20 Unknown Rx (6-Day Pack, 21 Tabs)] Promethazine [Phenergan] 25 mg PO Q6HR PRN #20 tab 03/11/20 Unknown Rx Azithromycin [Zithromax Z-MAGGIE] 250 mg PO DAILY #6 tab 07/03/21 Unknown Rx Benzonatate [Tessalon Perles] 100 mg PO Q8HR PRN #20 capsule 07/03/21 Unknown Rx Ondansetron [Zofran Odt] 4 mg PO Q8HR PRN #15 tab.rapdis 07/03/21 Unknown Rx ED Review of Systems ROS: Stated complaint: FEELING SICK, NAUSEA,VOMITING Other details as noted in HPI Comment: All other systems reviewed and negative Constitutional: denies: chills, fever Eyes: denies: eye pain, vision change ENT: denies: ear pain, throat pain Respiratory: cough. denies: shortness of breath Cardiovascular: denies: chest pain, palpitations Gastrointestinal: abdominal pain, nausea, vomiting. denies: diarrhea Genitourinary: denies: dysuria, discharge Musculoskeletal: denies: joint swelling, arthralgia Skin: denies: rash, change in color Neurological: denies: headache, numbness Physical Exam - Physical Exam Vital Signs: Vital Signs 07/02/21 07/02/21 18:06 20:04 Temperature 97.8 F 98.1 F Pulse Rate 79 74 Respiratory 18 14 Rate Blood Pressure 97/60 128/71 [Right] O2 Sat by Pulse 100 95 Oximetry Physical Exam: GENERAL: The patient is well-developed well-nourished. HENT: Normocephalic. Atraumatic. Patient has moist mucous membranes. EYES: Extraocular motions are intact. NECK: Supple. Trachea is midline. CHEST/LUNGS: Clear to auscultation. No tachypnea or accessory muscle use. No cough heard during examination. There is no respiratory distress noted. HEART/CARDIOVASCULAR: Regular. There is no tachycardia. There is no murmur. ABDOMEN: Abdomen is soft. Epigastric tenderness to palpation. No guarding. Patient has normal bowel sounds. There is no abdominal distention. SKIN: Skin is warm and dry. NEURO: The patient is awake, alert, and oriented. The patient is cooperative. The patient has no focal neurologic deficits. Normal speech. MUSCULOSKELETAL: There is no tenderness or deformity. There is no limitation range of motion. ED Course Vital Signs 07/02/21 07/02/21 18:06 20:04 Temperature 97.8 F 98.1 F Pulse Rate 79 74 Respiratory 18 14 Rate Blood Pressure 97/60 128/71 [Right] O2 Sat by Pulse 100 95 Oximetry ED Medical Decision Making - Lab Data Result diagrams: 07/02/21 19:14 07/02/21 19:14 Lab Results 07/02/21 07/02/21 07/03/21 Range/Units 19:14 19:14 Unknown WBC 13.7 H (4.5-11.0) K/mm3 RBC 3.28 L (3.65-5.03) M/mm3 Hgb 9.5 L (11.8-15.2) gm/dl Hct 29.6 L (35.5-45.6) % MCV 90 (84-94) fl MCH 29 (28-32) pg MCHC 32 (32-34) % RDW 13.2 (13.2-15.2) % Plt Count 403 (140-440) K/mm3 Lymph % (Auto) 11.3 L (13.4-35.0) % Mcintosh % (Auto) 9.6 H (0.0-7.3) % Eos % (Auto) 0.7 (0.0-4.3) % Baso % (Auto) 0.4 (0.0-1.8) % Lymph # (Auto) 1.6 (1.2-5.4) K/mm3 Mcintosh # (Auto) 1.3 H (0.0-0.8) K/mm3 Eos # (Auto) 0.1 (0.0-0.4) K/mm3 Baso # (Auto) 0.0 (0.0-0.1) K/mm3 Seg Neutrophils % 78.0 H (40.0-70.0) % Seg Neutrophils # 10.7 H (1.8-7.7) K/mm3 Sodium 136 L (137-145) mmol/L Potassium 3.8 (3.6-5.0) mmol/L Chloride 100.2 (98-107) mmol/L Carbon Dioxide 24 (22-30) mmol/L Anion Gap 16 mmol/L BUN 31 H (9-20) mg/dL Creatinine 1.5 H (0.8-1.3) mg/dL Estimated GFR 50 ml/min BUN/Creatinine Ratio 21 % Glucose 100 (75-100) mg/dL Calcium 8.5 (8.4-10.2) mg/dL Total Bilirubin < 0.20 (0.1-1.2) mg/dL AST 25 (5-40) units/L ALT 22 (7-56) units/L Alkaline Phosphatase 76 (35-129) units/L Total Protein 6.3 (6.3-8.2) g/dL Albumin 3.3 L (3.9-5) g/dL Albumin/Globulin Ratio 1.1 % Lipase 38 (13-60) units/L Urine Color Straw (Yellow) Urine Turbidity Clear (Clear) Urine pH 6.0 (5.0-7.0) Ur Specific [place] 1.008 (1.003-1.030) Urine Protein <15 mg/dl (Negative) mg/dL Urine Glucose (UA) Neg (Negative) mg/dL Urine Ketones Neg (Negative) mg/dL Urine Blood Neg (Negative) Urine Nitrite Neg (Negative) Urine Bilirubin Neg (Negative) Urine Urobilinogen < 2.0 (<2.0) mg/dL Ur Leukocyte Esterase Neg (Negative) Urine WBC (Auto) 1.0 (0.0-6.0) /HPF Urine RBC (Auto) 2.0 (0.0-6.0) /HPF - Radiology Data Radiology results: report reviewed ABDOMEN 3 VIEW(S) INDICATION / CLINICAL INFORMATION: Cough, abd pain. COMPARISON: 06/30/2021 FINDINGS: TUBES / LINES: None. BOWEL GAS PATTERN: No significant abnormality. FREE AIR / EXTRALUMINAL GAS: None seen. ADDITIONAL FINDINGS: No significant additional findings. CHEST: Patchy airspace opacities are noted in the right lung. IMPRESSION: 1. Multifocal pneumonia in the right lung. - Medical Decision Making This patient has nausea with vomiting, mixed dry and productive cough, generalized weakness. On examination the patient does not appear in any respiratory or acute distress. An IV was placed and he was given some IV fluid resuscitation and a dose of IV antiemetics. Chest x-ray shows patchy right consolidations concerning for pneumonia. Patient was started on Rocephin and azithromycin for community-acquired pneumonia. Labs show some anemia with hemoglobin of 9.5, mild renal insufficiency with a GFR 50 that is most likely secondary to dehydration, and a very mild leukocytosis of about 13,000. Patient was reevaluated multiple times over multiple hours and both appears and feels improved. He was able to pass an oral challenge. Vital signs reassuring including being afebrile. For these reasons he appears safe for discharge home at this time. The patient will be given a prescription for azithromycin, Tessalon Perles and Zofran ODT. We discussed seeking outpatient COVID-19 testing. He will follow up with his primary care physician and will return to the emergency department with any worsening of his symptoms or with any acute distress. Critical Care Time: No Critical care attestation.: If time is entered above; I have spent that time in minutes in the direct care of this critically ill patient, excluding procedure time. ED Disposition Clinical Impression: Renal insufficiency, Dehydration Pneumonia Qualifiers: Pneumonia type: due to unspecified organism Laterality: right Lung location: unspecified part of lung Qualified Code(s): J18.9 - Pneumonia, unspecified organism Nausea & vomiting Qualifiers: Vomiting type: unspecified Vomiting Intractability: non-intractable Qualified Code(s): R11.2 - Nausea with vomiting, unspecified Anemia Qualifiers: Anemia type: unspecified type Qualified Code(s): D64.9 - Anemia, unspecified Disposition: HOME / SELF CARE / HOMELESS Is pt being admited?: No Condition: Stable Instructions: Complete Blood Count, Nausea and Vomiting, Adult, Community- Acquired Pneumonia, Adult, Dehydration, Adult, Bacterial Pneumonia (ED) Additional Instructions: Please follow-up with your primary care physician in the next few days. Increase your oral rehydration. I have given you a referral for [facility] to follow-up regarding the rectal bleeding you have seen. You may need a colonoscopy in the near future. Return to the emergency department with any worsening of your symptoms, new or concerning symptoms not addressed during this current emergency department visit, or with any acute distress. Prescriptions: Benzonatate [Tessalon Perles] 100 mg PO Q8HR PRN #20 capsule PRN Reason: Cough Azithromycin [Zithromax Z-MAGGIE] 250 mg PO DAILY #6 tab Ondansetron [Zofran Odt] 4 mg PO Q8HR PRN #15 tab.rapdis PRN Reason: Nausea Referrals: JUNE ALVARADO MD [Primary Care Provider] - 2-3 Days [facility] [Provider Group] - 3-5 Days Forms: Work/School Release Form(ED) Time of Disposition:
--- NOTE | 2021-07-02 21:43 | XRay Report ---
ABDOMEN 3 VIEW(S) INDICATION / CLINICAL INFORMATION: Cough, abd pain. COMPARISON: 06/30/2021 FINDINGS: TUBES / LINES: None. BOWEL GAS PATTERN: No significant abnormality. FREE AIR / EXTRALUMINAL GAS: None seen. ADDITIONAL FINDINGS: No significant additional findings. CHEST: Patchy airspace opacities are noted in the right lung. IMPRESSION: 1. Multifocal pneumonia in the right lung. Signer Name: Torsten Waters DO Signed: 07/02/2021 9:39 PM Workstation Name: [id number]
[2021-07-02] MEDS ORDERED: cefTRIAXone/NS 1 GM/50 ML 1 GM/50 ML BAG IV ONE (21:48)
[2021-07-02] MEDS ORDERED: AZITHROMYCIN/NS 500 MG/250 ML 500 MG/250 ML BAG IV ONE (21:48)
[2021-07-03 00:05] VITALS: BP 95/58
[2021-07-03 01:04] LABS: Bilirubin,Urine NEG (Negative); Blood,Urine NEG (Negative); Color,Urine Straw (Yellow); Protein,Urine <15 mg/dL mg/dL (Negative); Urobilinogen,Urine < 2.0 mg/dL (<2.0)
== END 2021-07-03 01:31 | disposition home or self-care (01) ==
LOC: ED 17:56
DX: N28.9 Disorder of kidney and ureter, unspecified (principal); E86.0 Dehydration; J18.9 Pneumonia, unspecified organism; R11.2 Nausea with vomiting, unspecified; D64.9 Anemia, unspecified; Z98.890 Other specified postprocedural states
CPT/HCPCS: 36415; 74022; 80053; 81001; 83690; 85025; 96361; 96365; 96368; 96375; 99284; J0456; J0696; J2405; J7030; Q0162

== ENCOUNTER 2021-07-17 13:24 | Emergency (ER) | payer OTHER ==
--- NOTE | 2021-07-17 13:48 | Emergency Department Report ---
HPI - General Chief Complaint: Weakness Time Seen by Provider: 07/17/21 13:35 - HPI HPI: 50-year-old male presents to the emergency department via EMS from home with complaint of a few days of generalized weakness, decreased appetite and oral intake. The patient says that he had some left-sided numbness earlier in the day that has since resolved, and currently has a mild generalized headache. He denies any vision change, slurred speech, focal or lateralizing weakness. The patient presents with some hypotension with a blood pressure of 7 8/46. The patient has a history of hypertension and hyperlipidemia. He follows with Dr. Stevens and has an appointment on Tuesday. I saw this patient 2 times at the beginning of this month and that first visit the patient appeared septic with pneumonia, hypotension and mild hypoxia. However I saw him 2 days later and he had greatly improved. Patient has had 1 of 2 Covid vaccinations. He admits to noncompliance with the antibiotics that were previously prescribed for his pneumonia. ED Past Medical Hx - Past Medical History Hx Hypertension: Yes Additional medical history: HLD - Surgical History Additional Surgical History: shoulder, melanoma removed - Social History Smoking Status: Never Smoker Substance Use Type: None - Medications Home Medications: Home Medications Medication Instructions Recorded Confirmed Last Taken Type Prednisone [predniSONE 10 mg 10 mg PO .TAPER #1 tab.ds.pk 03/11/20 Unknown Rx (6-Day Pack, 21 Tabs)] Promethazine [Phenergan] 25 mg PO Q6HR PRN #20 tab 03/11/20 Unknown Rx Azithromycin [Zithromax Z-MAGGIE] 250 mg PO DAILY #6 tab 07/03/21 Unknown Rx Benzonatate [Tessalon Perles] 100 mg PO Q8HR PRN #20 capsule 07/03/21 Unknown Rx Ondansetron [Zofran Odt] 4 mg PO Q8HR PRN #15 tab.rapdis 07/03/21 Unknown Rx ED Review of Systems ROS: Stated complaint: Weakness Other details as noted in HPI Comment: All other systems reviewed and negative Constitutional: weakness. denies: fever Eyes: denies: eye pain, vision change ENT: denies: ear pain, throat pain Respiratory: denies: shortness of breath, wheezing Gastrointestinal: denies: abdominal pain, vomiting Genitourinary: denies: dysuria, discharge Musculoskeletal: myalgia. denies: joint swelling Skin: denies: rash, lesions Neurological: headache, numbness (left sided, resolved) Physical Exam - Physical Exam Vital Signs: Vital Signs 07/17/21 13:32 Temperature 98.0 F Pulse Rate 67 Respiratory 16 Rate Blood Pressure 78/46 [Left] O2 Sat by Pulse 94 Oximetry Physical Exam: GENERAL: The patient is well-developed well-nourished. HENT: Normocephalic. Atraumatic. Patient has moist mucous membranes. EYES: Extraocular motions are intact. No nystagmus. NECK: Supple. Trachea is midline. CHEST/LUNGS: Clear to auscultation. There is no respiratory distress noted. HEART/CARDIOVASCULAR: Regular. There is no tachycardia. There is no murmur. ABDOMEN: Abdomen is soft, nontender. Patient has normal bowel sounds. SKIN: Skin is warm and dry. NEURO: The patient is awake, alert, and oriented. The patient is cooperative. The patient has no focal neurologic deficits. Normal speech. Cranial nerves II through XII grossly intact. No facial asymmetry. No pronator drift. MUSCULOSKELETAL: There is no tenderness or deformity. There is no limitation range of motion. ED Course Vital Signs 07/17/21 13:32 Temperature 98.0 F Pulse Rate 67 Respiratory 16 Rate Blood Pressure 78/46 [Left] O2 Sat by Pulse 94 Oximetry ED Medical Decision Making - Lab Data Result diagrams: 07/17/21 14:22 07/17/21 14:22 Lab Results 07/17/21 07/17/21 07/17/21 Range/Units 14:00 14:22 14:22 WBC 4.6 (4.5-11.0) K/mm3 RBC 3.02 L (3.65-5.03) M/mm3 Hgb 8.8 L (11.8-15.2) gm/dl Hct 27.9 L (35.5-45.6) % MCV 92 (84-94) fl MCH 29 (28-32) pg MCHC 32 (32-34) % RDW 14.1 (13.2-15.2) % Plt Count 275 (140-440) K/mm3 Lymph % (Auto) 40.7 H (13.4-35.0) % [place] % (Auto) 15.2 H (0.0-7.3) % Eos % (Auto) 6.3 H (0.0-4.3) % Baso % (Auto) 0.8 (0.0-1.8) % Lymph # (Auto) 1.9 (1.2-5.4) K/mm3 [place] # (Auto) 0.7 (0.0-0.8) K/mm3 Eos # (Auto) 0.3 (0.0-0.4) K/mm3 Baso # (Auto) 0.0 (0.0-0.1) K/mm3 Seg Neutrophils % 37.0 L (40.0-70.0) % Seg Neutrophils # 1.7 L (1.8-7.7) K/mm3 Sodium 139 (137-145) mmol/L Potassium 4.9 (3.6-5.0) mmol/L Chloride 106.7 (98-107) mmol/L Carbon Dioxide 22 (22-30) mmol/L Anion Gap 15 mmol/L BUN 19 (9-20) mg/dL Creatinine 1.1 (0.8-1.3) mg/dL Estimated GFR > 60 ml/min BUN/Creatinine Ratio 17 % Glucose 89 (75-100) mg/dL Calcium 8.5 (8.4-10.2) mg/dL Total Bilirubin < 0.20 (0.1-1.2) mg/dL AST 19 (5-40) units/L ALT 12 (7-56) units/L Alkaline Phosphatase 55 (35-129) units/L Troponin T < 0.010 (0.00-0.029) ng/mL Total Protein 6.0 L (6.3-8.2) g/dL Albumin 3.6 L (3.9-5) g/dL Albumin/Globulin Ratio 1.5 % TSH (0.270-4.200) mlU/mL Free T4 (0.76-1.46) ng/dL Urine Color Straw (Yellow) Urine Turbidity Clear (Clear) Urine pH 5.0 (5.0-7.0) Ur Specific [place] 1.013 (1.003-1.030) Urine Protein <15 mg/dl (Negative) mg/dL Urine Glucose (UA) Neg (Negative) mg/dL Urine Ketones Neg (Negative) mg/dL Urine Blood Neg (Negative) Urine Nitrite Neg (Negative) Urine Bilirubin Neg (Negative) Urine Urobilinogen < 2.0 (<2.0) mg/dL Ur Leukocyte Esterase Neg (Negative) Urine WBC (Auto) < 1.0 (0.0-6.0) /HPF Urine RBC (Auto) < 1.0 (0.0-6.0) /HPF 07/17/21 07/17/21 Range/Units 14:22 14:22 WBC (4.5-11.0) K/mm3 RBC (3.65-5.03) M/mm3 Hgb (11.8-15.2) gm/dl Hct (35.5-45.6) % MCV (84-94) fl MCH (28-32) pg MCHC (32-34) % RDW (13.2-15.2) % Plt Count (140-440) K/mm3 Lymph % (Auto) (13.4-35.0) % [place] % (Auto) (0.0-7.3) % Eos % (Auto) (0.0-4.3) % Baso % (Auto) (0.0-1.8) % Lymph # (Auto) (1.2-5.4) K/mm3 [place] # (Auto) (0.0-0.8) K/mm3 Eos # (Auto) (0.0-0.4) K/mm3 Baso # (Auto) (0.0-0.1) K/mm3 Seg Neutrophils % (40.0-70.0) % Seg Neutrophils # (1.8-7.7) K/mm3 Sodium (137-145) mmol/L Potassium (3.6-5.0) mmol/L Chloride (98-107) mmol/L Carbon Dioxide (22-30) mmol/L Anion Gap mmol/L BUN (9-20) mg/dL Creatinine (0.8-1.3) mg/dL Estimated GFR ml/min BUN/Creatinine Ratio % Glucose (75-100) mg/dL Calcium (8.4-10.2) mg/dL Total Bilirubin (0.1-1.2) mg/dL AST (5-40) units/L ALT (7-56) units/L Alkaline Phosphatase (35-129) units/L Troponin T (0.00-0.029) ng/mL Total Protein (6.3-8.2) g/dL Albumin (3.9-5) g/dL Albumin/Globulin Ratio % TSH 6.180 H (0.270-4.200) mlU/mL Free T4 0.87 (0.76-1.46) ng/dL Urine Color (Yellow) Urine Turbidity (Clear) Urine pH (5.0-7.0) Ur Specific [place] (1.003-1.030) Urine Protein (Negative) mg/dL Urine Glucose (UA) (Negative) mg/dL Urine Ketones (Negative) mg/dL Urine Blood (Negative) Urine Nitrite (Negative) Urine Bilirubin (Negative) Urine Urobilinogen (<2.0) mg/dL Ur Leukocyte Esterase (Negative) Urine WBC (Auto) (0.0-6.0) /HPF Urine RBC (Auto) (0.0-6.0) /HPF - EKG Data -: EKG Interpreted by Me EKG shows normal: sinus rhythm, axis, intervals, QRS complexes, ST-T waves Rate: normal - EKG Data When compared to previous EKG there are: no significant change Interpretation: normal EKG, unchanged when compared t (06/30/21) - Radiology Data Radiology results: image reviewed interpreted by me: Chest x-ray does not show any acute process. There are no pleural effusions, obvious pneumonia and there is no pneumothorax. No widened mediastinum. - Medical Decision Making This patient presents to the emergency department with a complaint of some generalized weakness and fatigue, feeling dehydrated. The patient has not had any vomiting but says that he has been unable to have much oral intake due to decreased appetite. The patient does present with some hypotension. However, the patient goes from a MAP of 58 to 65 before any significant IV fluid is given. Chest x-ray does not show any pneumonia, pleural effusions, pneumothorax, widened mediastinum, and the previously seen consolidation has r esolved. EKG does not show any evidence of ST elevation myocardial infarction or any arrhythmia. Patient's labs are mostly unremarkable including CBC, metabolic panel, negative troponin, urinalysis. Patient does have some signs of hypothyroidism with a TSH level of about 6.5, but he has a normal free T4. Patient also has anemia with hemoglobin of 8.8 this is relatively consistent with previous visits and the patient denies any GI bleeding. Patient was given 2 L of IV fluid resuscitation. He has a MAP of 74 prior to discharge. He was reevaluated multiple times over multiple hours and says he is feeling greatly improved. Able to pass an oral challenge. He has an appointment with his [facility] physician on Tuesday. He will return to the emergency department with any worsening of his symptoms or with any acute distress. Critical Care Time: No Critical care attestation.: If time is entered above; I have spent that time in minutes in the direct care of this critically ill patient, excluding procedure time. ED Disposition Clinical Impression: Dehydration, Lightheaded Hypotension Qualifiers: Hypotension type: unspecified hypotension type Qualified Code(s): I95.9 - Hypotension, unspecified Anemia Qualifiers: Anemia type: unspecified type Qualified Code(s): D64.9 - Anemia, unspecified Disposition: 01 HOME / SELF CARE / HOMELESS Is pt being admited?: No Condition: Stable Instructions: Rehydration, Adult, Dizziness, Hypotension, Dehydration, Adult Additional Instructions: Please increase your oral rehydration. Follow-up with your primary care physician on Tuesday as previously scheduled. Return to the emergency department with any worsening of your symptoms, new or concerning symptoms not addressed during this current emergency department visit, or with any acute distress. Referrals: JUNE ALVARADO MD [Referring] - 07/20/21 Forms: Work/School Release Form(ED) Time of Disposition: 17:04
[2021-07-17] MEDS ORDERED: SODIUM CHLORIDE 0.9% 1000 ML 1,000 ML IV ONE ×2 (13:54→15:24)
--- NOTE | 2021-07-17 14:28 | Cat Scan Report ---
CT head/brain wo con INDICATION / CLINICAL INFORMATION: 50 years Male; headache, HTN. TECHNIQUE: Routine CT head without contrast. All CT scans at this location are performed using CT dos e reduction for ALARA by means of automated exposure control. COMPARISON: The study is compared to the previous CT of 03/11/2020. FINDINGS: BRAIN / INTRACRANIAL CONTENTS: The brain parenchyma appears to demonstrate appropriate attenuation fo r age. The ventricular system remains within normal limits in size and configuration. There is no yoni ar CT evidence of acute intracranial hemorrhage or significant mass effect. There is continued asymme try of the posterior right calvarium which appears to be developmental and unchanged. ORBITS: No significant abnormality of visualized orbits. SINUSES / MASTOIDS: No significant abnormality in the visualized paranasal sinuses or mastoid air nixon ls. CRANIOCERVICAL JUNCTION: No significant abnormality. ADDITIONAL FINDINGS: None. IMPRESSION: 1. There is no CT evidence of acute intracranial process. Signer Name: Prashant Sharma MD Signed: 07/17/2021 2:24 PM Workstation Name: [id number]
[2021-07-17 14:45] LABS: Bilirubin,Urine NEG (Negative); Blood,Urine NEG (Negative); Color,Urine Straw (Yellow); Protein,Urine <15 mg/dL mg/dL (Negative); RBC,Urine < 1.0 /HPF (0.0-6.0); Urobilinogen,Urine < 2.0 mg/dL (<2.0); WBC,Urine < 1.0 /HPF (0.0-6.0)
--- NOTE | 2021-07-17 14:55 | XRay Report ---
CHEST 1 VIEW INDICATION / CLINICAL INFORMATION: weakness STUDY TIME: 1414 COMPARISON: 07/02/2021 FINDINGS: SUPPORT DEVICES: None HEART / MEDIASTINUM: No significant abnormality. LUNGS / PLEURA: The infiltrate seen previously in the right lung has resolved. Lung moran are now cl ear. No pleural effusions are seen. No pneumothorax. ADDITIONAL FINDINGS: No significant additional findings. Signer Name: Timmy Scott MD Signed: 07/17/2021 2:51 PM Workstation Name: [id number]
[2021-07-17 14:57] LABS: Basophils % (Auto) 0.8 % (0.0-1.8); Eosinophils # (Auto) 0.3 K/mm3 (0.0-0.4); Eosinophils % (Auto) 6.3 % (0.0-4.3); Hematocrit 27.9 % (35.5-45.6); Hemoglobin 8.8 gm/dl (11.8-15.2); Lymphocytes # (Auto) 1.9 K/mm3 (1.2-5.4); Lymphocytes % (Auto) 40.7 % (13.4-35.0); Mean Corpuscular HGB Conc 32 % (32-34); Mean Corpuscular Volume 92 fl (84-94); Monocytes # (Auto) 0.7 K/mm3 (0.0-0.8); Monocytes % (Auto) 15.2 % (0.0-7.3); Platelet Count 275 K/mm3 (140-440); Red Blood Count 3.02 M/mm3 (3.65-5.03); Red Cell Distribution Width 14.1 % (13.2-15.2)
[2021-07-17 15:05] LABS: Alanine Aminotransferase 12 units/L (7-56); Albumin 3.6 g/dL (3.9-5); BUN/Creatinine Ratio 17; Blood Urea Nitrogen 19 mg/dL (9-20); Calcium 8.5 mg/dL (8.4-10.2); Hemolysis Index 4
[2021-07-17 17:24] VITALS: BP 101/61
--- NOTE | 2021-07-18 13:25 | Electrocardiograph Report ---
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
== END 2021-07-17 17:32 | disposition home or self-care (01) ==
LOC: ED 13:24
DX: E86.0 Dehydration (principal); R42 Dizziness and giddiness; I95.9 Hypotension, unspecified; D64.9 Anemia, unspecified
CPT/HCPCS: 36415; 70450; 71045; 80053; 81001; 84439; 84443; 84484; 85025; 93005; 96360; 96361; 99285; J7030; Q0162

== ENCOUNTER 2021-10-30 19:51 | Emergency (ER) | payer OTHER ==
[2021-10-30 20:57] VITALS: BP 91/50
[2021-10-30] MEDS ORDERED: SODIUM CHLORIDE 0.9% 1000 ML IV SOLN IV ONE (21:13)
[2021-10-30 21:53] LABS: Basophils % (Auto) 0.5 % (0.0-1.8); Eosinophils % (Auto) 0.2 % (0.0-4.3); Hematocrit 36.8 % (35.5-45.6); Hemoglobin 11.9 gm/dl (11.8-15.2); Lymphocytes % (Auto) 16.4 % (13.4-35.0); Mean Corpuscular HGB Conc 32 % (32-34); Mean Corpuscular Volume 93 fl (84-94); Monocytes # (Auto) 0.3 K/mm3 (0.0-0.8); Platelet Count 396 K/mm3 (140-440); Red Blood Count 3.96 M/mm3 (3.65-5.03); Red Cell Distribution Width 13.1 % (13.2-15.2)
[2021-10-30 21:57] LABS: Alanine Aminotransferase 11 units/L (7-56); Albumin 4.2 g/dL (3.9-5); BUN/Creatinine Ratio 14; Blood Urea Nitrogen 20 mg/dL (9-20); Calcium 9.3 mg/dL (8.4-10.2); Hemolysis Index 6
--- NOTE | 2021-10-30 21:57 | XRay Report ---
CHEST 1 VIEW 10/30/2021 9:36 PM INDICATION / CLINICAL INFORMATION: cough. COMPARISON: 07/17/2021 FINDINGS: SUPPORT DEVICES: None. HEART / MEDIASTINUM: No significant abnormality. LUNGS / PLEURA: No significant pulmonary or pleural abnormality. No pneumothorax. ADDITIONAL FINDINGS: No significant additional findings. IMPRESSION: 1. No acute findings. Signer Name: Stone Bolanos MD Signed: 10/30/2021 9:53 PM Workstation Name: [id number]
[2021-10-31 00:01] LABS: Bacteria,Urine 1+ /HPF (Negative); Bilirubin,Urine NEG (Negative); Blood,Urine NEG (Negative); Color,Urine Yellow (Yellow); Mucus,Urine FEW /HPF; RBC,Urine < 1.0 /HPF (0.0-6.0); Urobilinogen,Urine < 2.0 mg/dL (<2.0)
[2021-10-31] MEDS ORDERED: cefTRIAXone/NS 1 GM/50 ML 1 GM/50 ML BAG IV ONE (00:01)
--- NOTE | 2021-10-31 00:04 | Emergency Department Report ---
- General Chief complaint: Weakness Stated complaint: CHEST CONGESTION/SICK Time Seen by Provider: 10/30/21 21:04 Source: patient Mode of arrival: Ambulatory Limitations: No Limitations - History of Present Illness MD Complaint: generalized weakness -: Gradual Severity scale (0 -10): 2 Consistency: intermittent Improves with: none Worsens with: none - Related Data Previous Rx's Medication Instructions Recorded Last Taken Type Prednisone [predniSONE 10 mg 10 mg PO .TAPER #1 tab.ds.pk 03/11/20 Unknown Rx (6-Day Pack, 21 Tabs)] Promethazine [Phenergan] 25 mg PO Q6HR PRN #20 tab 03/11/20 Unknown Rx Azithromycin [Zithromax Z-MAGGIE] 250 mg PO DAILY #6 tab 07/03/21 Unknown Rx Benzonatate [Tessalon Perles] 100 mg PO Q8HR PRN #20 capsule 07/03/21 Unknown Rx Ondansetron [Zofran Odt] 4 mg PO Q8HR PRN #15 tab.rapdis 07/03/21 Unknown Rx Amoxicillin/Potassium Clav 1 each PO BID #14 10/31/21 Unknown Rx [Augmentin 875-125 Tablet] Neomy/Polymyx B/Hc Otic Susp 4 drops OTIC TID #1 bottle 10/31/21 Unknown Rx [Cortisporin (Otic) Susp] Allergies Allergy/AdvReac Type Severity Reaction Status Date / Time No Known Allergies Allergy Unverified 07/17/21 13:32 ED Review of Systems ROS: Stated complaint: CHEST CONGESTION/SICK Other details as noted in HPI Constitutional: denies: chills, fever Eyes: denies: eye pain, eye discharge, vision change ENT: denies: ear pain, throat pain Respiratory: denies: cough, shortness of breath, wheezing Cardiovascular: denies: chest pain, palpitations Endocrine: no symptoms reported Gastrointestinal: denies: abdominal pain, nausea, diarrhea Genitourinary: denies: urgency, dysuria Musculoskeletal: denies: back pain, joint swelling, arthralgia Skin: denies: rash, lesions Neurological: denies: headache, weakness, paresthesias Psychiatric: denies: anxiety, depression Hematological/Lymphatic: denies: easy bleeding, easy bruising ED Past Medical Hx - Past Medical History Hx Hypertension: Yes Additional medical history: HLD - Surgical History Additional Surgical History: shoulder, melanoma removed - Social History Smoking Status: Never Smoker Substance Use Type: None - Medications Home Medications: Home Medications Medication Instructions Recorded Confirmed Last Taken Type Prednisone [predniSONE 10 mg 10 mg PO .TAPER #1 tab.ds.pk 03/11/20 Unknown Rx (6-Day Pack, 21 Tabs)] Promethazine [Phenergan] 25 mg PO Q6HR PRN #20 tab 03/11/20 Unknown Rx Azithromycin [Zithromax Z-MAGGIE] 250 mg PO DAILY #6 tab 07/03/21 Unknown Rx Benzonatate [Tessalon Perles] 100 mg PO Q8HR PRN #20 capsule 07/03/21 Unknown Rx Ondansetron [Zofran Odt] 4 mg PO Q8HR PRN #15 tab.rapdis 07/03/21 Unknown Rx Amoxicillin/Potassium Clav 1 each PO BID #14 10/31/21 Unknown Rx [Augmentin 875-125 Tablet] Neomy/Polymyx B/Hc Otic Susp 4 drops OTIC TID #1 bottle 10/31/21 Unknown Rx [Cortisporin (Otic) Susp] ED Physical Exam - General Limitations: No Limitations General appearance: alert, in no apparent distress - Head Head exam: Present: atraumatic, normocephalic - Eye Eye exam: Present: normal appearance - Neck Neck exam: Present: normal inspection - Respiratory Respiratory exam: Present: normal lung sounds bilaterally. Absent: respiratory distress - Cardiovascular Cardiovascular Exam: Present: regular rate, normal rhythm. Absent: systolic murmur, diastolic murmur, rubs, gallop - GI/Abdominal GI/Abdominal exam: Present: soft, normal bowel sounds - Rectal Rectal exam: Present: deferred - Extremities Exam Extremities exam: Present: normal inspection - Back Exam Back exam: Present: normal inspection - Neurological Exam Neurological exam: Present: alert, oriented X3 - Psychiatric Psychiatric exam: Present: normal affect, normal mood - Skin Skin exam: Present: warm, dry, intact, normal color. Absent: rash ED Course Vital Signs 10/30/21 10/30/21 20:54 21:36 Temperature 98.3 F Pulse Rate 63 Respiratory 18 Rate Blood Pressure 91/50 O2 Sat by Pulse 97 98 Oximetry - Reevaluation(s) Reevaluation #1: 10/31/21 00:03 work up unremarkable , fluids given not septic BP is 110/68 , ear showed otitis externa , will give abx and send home on abx and steriods eye drops ED Medical Decision Making - Lab Data Result diagrams: 10/30/21 21:23 10/30/21 21:23 Critical care attestation.: If time is entered above; I have spent that time in minutes in the direct care of this critically ill patient, excluding procedure time. ED Disposition Clinical Impression: Right otitis externa, Weakness, Dizziness Disposition: 01 HOME / SELF CARE / HOMELESS Is pt being admited?: No Does the pt Need Aspirin: No Condition: Stable Instructions: Ear Drops, Adult, Weakness, [id number], Otitis Externa Prescriptions: Amoxicillin/Potassium Clav [Augmentin 875-125 Tablet] 1 each PO BID #14 Neomy/Polymyx B/Hc Otic Susp [Cortisporin (Otic) Susp] 4 drops OTIC TID #1 bottle Forms: Work/School Release Form(ED)
--- NOTE | 2021-11-01 11:48 | Electrocardiograph Report ---
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
== END 2021-10-31 00:30 | disposition home or self-care (01) ==
LOC: ED 19:51
DX: J02.9 Acute pharyngitis, unspecified (principal); R06.02 Shortness of breath; R53.83 Other fatigue; I10 Essential (primary) hypertension; Z79.899 Other long term (current) drug therapy
CPT/HCPCS: 36415; 71045; 80053; 81001; 82140; 84484; 85025; 87040; 87116; 87430; 93005; 93010; 96360; 99284; J7030; Q0162

== ENCOUNTER 2021-11-17 00:33 | Emergency (ER) | payer OTHER ==
[2021-11-17] MEDS ORDERED: SODIUM CHLORIDE 0.9% 1000 ML 1,000 ML IV ONE ×3 (01:12→04:03)
[2021-11-17] MEDS ORDERED: ONDANSETRON 4 MG/2 ML INJ IV ONE (01:12)
[2021-11-17] MEDS ORDERED: ATROPINE 0.1% (1 MG/10 ML) CARDIAC SYRINGE ONE (01:18)
--- NOTE | 2021-11-17 01:22 | Emergency Department Report ---
HPI - General Chief Complaint: Syncope Time Seen by Provider: 11/17/21 01:03 - HPI HPI: Room 2 Patient is a 51-year-old male present with a chief complaint of syncope the patient states he was in his usual state of health this morning up until this afternoon at 14: 00 and he states he started having a "weird feeling in his head." Patient states he cannot describe very well with this feeling but he had a "fuzzy feeling" in his head. Patient also complained of neck pain at the time. The patient states later this evening at 22: 30 while standing he began to feel dizzy and had a syncopal episode. Patient states he awakened on the floor. Patient denies ever having chest pain at any time. Patient states at 14: 00 he had some shortness of breath. Patient admits to nausea but denies vomiting. Patient states his last bowel movement occurred yesterday he has not noticed any bright red blood per rectum or melena. The patient states the only medications he takes for his blood pressure or clonidine, amlodipine and lisinopril. Patient denies taking beta-blockers ED Past Medical Hx - Past Medical History Hx Hypertension: Yes Hx of Cancer: Yes (Malignant melanoma status post excision) Additional medical history: Hypercholesterolemia - Surgical History Past Surgical History?: No Additional Surgical History: shoulder, melanoma removed, skin graft, hand surger y - Family History Family history: no significant - Social History Smoking Status: Former Smoker (As a teenager) Substance Use Type: None (Denies illicit drug use) - Medications Home Medications: Home Medications Medication Instructions Recorded Confirmed Last Taken Type Prednisone [predniSONE 10 mg 10 mg PO .TAPER #1 tab.ds.pk 03/11/20 Unknown Rx (6-Day Pack, 21 Tabs)] Promethazine [Phenergan] 25 mg PO Q6HR PRN #20 tab 03/11/20 Unknown Rx Azithromycin [Zithromax Z-MAGGIE] 250 mg PO DAILY #6 tab 07/03/21 Unknown Rx Benzonatate [Tessalon Perles] 100 mg PO Q8HR PRN #20 capsule 07/03/21 Unknown Rx Ondansetron [Zofran Odt] 4 mg PO Q8HR PRN #15 tab.rapdis 07/03/21 Unknown Rx Amoxicillin/Potassium Clav 1 each PO BID #14 10/31/21 Unknown Rx [Augmentin 875-125 Tablet] Neomy/Polymyx B/Hc Otic Susp 4 drops OTIC TID #1 bottle 10/31/21 Unknown Rx [Cortisporin (Otic) Susp] ED Review of Systems ROS: Stated complaint: DIZZY AND BLACKING OUT Other details as noted in HPI Constitutional: no symptoms reported Eyes: denies: eye pain ENT: denies: throat pain Respiratory: shortness of breath Cardiovascular: denies: chest pain Endocrine: no symptoms reported Gastrointestinal: nausea. denies: vomiting, melena, hematochezia Genitourinary: denies: dysuria Musculoskeletal: denies: back pain Neurological: other (Dizziness). denies: headache Physical Exam - Physical Exam Vital Signs: Vital Signs 11/17/21 00:43 Pulse Rate 46 L Respiratory 16 Rate Blood Pressure 72/22 O2 Sat by Pulse 98 Oximetry Physical Exam: GENERAL: The patient is well-developed well-nourished pale appearing male lying on stretcher not appearing to be in acute distress. [] HEENT: Normocephalic. Atraumatic. Extraocular motions are intact. Patient has moist mucous membranes. NECK: Supple. No meningitic signs are noted. Trachea midline CHEST/LUNGS: Clear to auscultation. There is no respiratory distress noted. HEART/CARDIOVASCULAR: Bradycardic. There is no gallop rub or murmur. ABDOMEN: Abdomen is soft, nontender. Patient has normal bowel sounds. There is no abdominal distention. SKIN: There is no rash. There is no edema. There is no diaphoresis. Patient appears pale NEURO: The patient is awake, alert, and oriented. The patient is cooperative. The patient has no focal neurologic deficits. The patient has normal speech. Cranial nerves II through XII grossly intact. GCS 15 MUSCULOSKELETAL: There is no evidence of acute injury. ED Course Vital Signs 11/17/21 00:43 Pulse Rate 46 L Respiratory 16 Rate Blood Pressure 72/22 O2 Sat by Pulse 98 Oximetry - Reevaluation(s) Reevaluation #1: 11/17/21 05:39 Status post third liter IV fluid patient remains hypotensive 85's systolic. Reports patient about starting dopamine and need for central line. Patient requesting that we hold off on central line at this time. We will give more IV fluids and run dopamine peripherally temporarily and have admit team reassess. Patient was advised that if he remains hypotensive he will require a central line. Patient verbalized understanding - Consultations Consultation #1: 11/17/21 01:18 EKG sent to and discussed with loan counselor Dr. Tabares- no STEMI ED Medical Decision Making - Lab Data Result diagrams: 11/17/21 01:21 11/17/21 01:21 - EKG Data -: EKG Interpreted by Me EKG shows normal: sinus rhythm Rate: bradycardia (43 bpm) - EKG Data When compared to previous EKG there are: previous EKG unavailable Interpretation: nonspecific ST-T wave sydni - Radiology Data Radiology results: report reviewed (CT head, chest x-ray), image reviewed (CT head, chest x-ray) interpreted by me: Chest x-ray-no definite focal infiltrates, no pneumothorax [address] [address] Cat Scan Report Signed Patient: MICHAEL CHRISTIANSEN MR#: [id number] : 1970 Acct:[id number] Age/Sex: 51 / M ADM Date: 11/17/21 Loc: ED Attending Dr: Ordering Physician: GABI OSCAR MD Date of Service: 11/17/21 Procedure(s): CT head/brain wo con Accession Number(s): [id number] cc: GABI OSCAR MD CT HEAD WITHOUT CONTRAST INDICATION / CLINICAL INFORMATION: Syncope. TECHNIQUE: All CT scans at this location are performed using CT dose reduction for ALARA by means of automated exposure control. COMPARISON: 07/17/21. FINDINGS: HEMORRHAGE: None. EXTRA-AXIAL SPACES: Normal in size and morphology for the patient's age. VENTRICULAR SYSTEM: Normal in size and morphology for the patient's age. CEREBRAL PARENCHYMA: No significant abnormality. No acute territorial infarct. MIDLINE SHIFT / HERNIATION: None. CEREBELLUM / BRAINSTEM: N o significant abnormality. ORBITS: Normal as visualized. SOFT TISSUES: No significant abnormality. SKULL: No significant abnormality. PARANASAL SINUSES / MASTOID AIR CELLS: Normal as visualized. ADDITIONAL FINDINGS: None. IMPRESSION: No acute intracranial abnormality. Signer Name: Tyson Fragoso MD Signed: 11/17/2021 2:14 AM Workstation Name: [id number] Transcribed By: RT Dictated By: Tyson Fragoso MD Electronically Authenticated By: Tyson Fragoso MD Signed Date/Time: 11/17/21213 DD/ 2 TD/TT: [facility] [address] [place] [address] XRay Report Signed Patient: MICHAEL CHRISTIANSEN MR#: [id number] : 1970 Acct:[id number] Age/Sex: 51 / M ADM Date: 11/17/21 Loc: ED Attending Dr: Ordering Physician: GABI OSCAR MD Date of Service: 11/17/21 Procedure(s): XR chest 1V ap Accession Number(s): [id number] cc: GABI OSCAR MD Fluoro Time In Minutes: CHEST 1 VIEW 11/17/2021 1:56 AM INDICATION / CLINICAL INFORMATION: Syncope; shortness of breath. COMPARISON: 10/30/21. FINDINGS: SUPPORT DEVICES: None. HEART / MEDIASTINUM: The heart size and pulmonary vasculature are normal. The aorta is normal in caliber. LUNGS / PLEURA: No significant pulmonary or pleural abnormality. No pneumothorax. ADDITIONAL FINDINGS: No significant additional findings. IMPRESSION: No acute abnormality or significant change. Signer Name: Tyson Fragoso MD Signed: 11/17/2021 2:18 AM Workstation Name: [id number] Transcribed By: RT Dictated By: Tyson Fragoso MD Electronically Authenticated By: Tyson Fragoso MD Signed Date/Time: 11/17/21217 DD/ 7 - Differential Diagnosis Symptomatic bradycardia, electrolyte imbalance, sepsis, hypothyroidism Critical care attestation.: If time is entered above; I have spent that time in minutes in the direct care of this critically ill patient, excluding procedure time. ED Disposition Clinical Impression: Hypotension, Acute kidney injury, Hyperkalemia, Bradycardia Disposition: ADMITTED INPATIENT Is pt being admited?: Yes Does the pt Need Aspirin: No Condition: Fair Referrals: PRIMARY CARE, [Primary Care Provider] - 3-5 Days Time of Disposition: 05:41 (Hospitalist called (Dr. Loyola))
[2021-11-17] MEDS ORDERED: ATROPINE 0.1% (1 MG/10 ML) CARDIAC SYRINGE IV ONE ×2 (01:41→03:00)
[2021-11-17 01:51] LABS: Basophils # (Auto) 0.1 K/mm3 (0.0-0.1); Basophils % (Auto) 0.8 % (0.0-1.8); Eosinophils # (Auto) 0.1 K/mm3 (0.0-0.4); Eosinophils % (Auto) 1.3 % (0.0-4.3); Hematocrit 33.1 % (35.5-45.6); Hemoglobin 10.8 gm/dl (11.8-15.2); Lymphocytes # (Auto) 2.6 K/mm3 (1.2-5.4); Lymphocytes % (Auto) 35.6 % (13.4-35.0); Mean Corpuscular HGB Conc 33 % (32-34); Mean Corpuscular Volume 92 fl (84-94); Monocytes # (Auto) 0.9 K/mm3 (0.0-0.8); Monocytes % (Auto) 12.4 % (0.0-7.3); Platelet Count 296 K/mm3 (140-440); Red Blood Count 3.58 M/mm3 (3.65-5.03); Red Cell Distribution Width 13.3 % (13.2-15.2)
[2021-11-17 02:02] LABS: Partial Thromboplastin Time 25.6 Sec. (24.2-36.6)
[2021-11-17 02:14] LABS: Creatine Kinase MB 6.7 ng/mL (0.0-4.0)
[2021-11-17 02:15] LABS: Alanine Aminotransferase 14 units/L (7-56); Albumin 4.3 g/dL (3.9-5); BUN/Creatinine Ratio 14; Blood Urea Nitrogen 34 mg/dL (9-20); Calcium 9.5 mg/dL (8.4-10.2); Hemolysis Index 7
--- NOTE | 2021-11-17 02:18 | Cat Scan Report ---
CT HEAD WITHOUT CONTRAST INDICATION / CLINICAL INFORMATION: Syncope. TECHNIQUE: All CT scans at this location are performed using CT dose reduction for ALARA by means of automated exposure control. COMPARISON: 07/17/21. FINDINGS: HEMORRHAGE: None. EXTRA-AXIAL SPACES: Normal in size and morphology for the patient's age. VENTRICULAR SYSTEM: Normal in size and morphology for the patient's age. CEREBRAL PARENCHYMA: No significant abnormality. No acute territorial infarct. MIDLINE SHIFT / HERNIATION: None. CEREBELLUM / BRAINSTEM: No significant abnormality. ORBITS: Normal as visualized. SOFT TISSUES: No significant abnormality. SKULL: No significant abnormality. PARANASAL SINUSES / MASTOID AIR CELLS: Normal as visualized. ADDITIONAL FINDINGS: None. IMPRESSION: No acute intracranial abnormality. Signer Name: Tyson Fragoso MD Signed: 11/17/2021 2:14 AM Workstation Name: [id number]
[2021-11-17] MEDS ORDERED: ATROPINE 1 MG/ML VIAL IV ONE (02:20)
--- NOTE | 2021-11-17 02:22 | XRay Report ---
CHEST 1 VIEW 11/17/2021 1:56 AM INDICATION / CLINICAL INFORMATION: Syncope; shortness of breath. COMPARISON: 10/30/21. FINDINGS: SUPPORT DEVICES: None. HEART / MEDIASTINUM: The heart size and pulmonary vasculature are normal. The aorta is normal in eulalio princess. LUNGS / PLEURA: No significant pulmonary or pleural abnormality. No pneumothorax. ADDITIONAL FINDINGS: No significant additional findings. IMPRESSION: No acute abnormality or significant change. Signer Name: Tyson Fragoso MD Signed: 11/17/2021 2:18 AM Workstation Name: [id number]
[2021-11-17 02:53] LABS: Free T4 (Free Thyroxine) 1.24 ng/dL (0.76-1.46)
[2021-11-17] MEDS ORDERED: INSULIN REGULAR, HUMAN 100 UNITS/1 ML IV ONE (03:40)
[2021-11-17] MEDS ORDERED: CALCIUM GLUCONATE 1,000 MG in SODIUM CHLORIDE 0.9% 100 ML IV ONE (03:40)
[2021-11-17] MEDS ORDERED: SODIUM POLYSTYRENE 15 GM/60 ML ORAL LIQD PO ONE (03:40)
[2021-11-17] MEDS ORDERED: ALBUTEROL 2.5 MG/3 ML NEBU IH ONE ×2 (03:40→03:42)
[2021-11-17] MEDS ORDERED: CALC GLUCONATE 1GM/NS 100 ML 1 GM/100 ML BAG IV ONE (05:00)
[2021-11-17] MEDS: DEXTROSE 10% *Hypoglycemia IV ONE ×2 (05:30→06:39)
[2021-11-17] MEDS ORDERED: DOPamine 800 MG/D5W 250ML 800 MG/250 ML BAG IV ONE (05:39)
[2021-11-17] MEDS ORDERED: DEXTROSE 50% IN WATER (25GM) 50 ML SYRINGE IV ONE (06:28)
[2021-11-17] MEDS: SODIUM CHLORIDE 0.9% 1000 ML 1,000 ML IV ONE ×2 (06:29→09:30)
[2021-11-17] MEDS ORDERED: DEXTROSE 10% *Hypoglycemia IV ONE (06:34)
[2021-11-17] MEDS ORDERED: D5W/0.9% NACL 1,000 ML IV SCH (07:00)
--- NOTE | 2021-11-17 07:32 | History and Physical Report ---
History of Present Illness History of present illness: HPI: 51-year-old male with past medical history of hypertension, ADHD, opioid dependence states that he had syncopal episode at approximately 1400 yesterday. Patient states that he felt as though his head was spinning and he had this weird feeling. Patient unable to appropriately describe this. He states that later on that evening he had an additional syncopal episode. Patient states that he awoke on the floor after this episode. He denied having chest pain, shortness of breath, abdominal pain. He did state he had some nausea and vomiting yesterday afternoon. He also states that he may have taken additional dose of his blood pressure medication. He states that he may have taken additional dose of clonidine 0.3 mg. Remainder of ROS negative except for stated above PMHx: HTN, ADHD, opioid dependence. PSH X: Melanoma removed, skin graft, hand surgery FhX; reviewed noncontributory SHx: Former smoker as a teenager Denies alcohol Denies recreational drug use Medications and Allergies Allergies Allergy/AdvReac Type Severity Reaction Status Date / Time No Known Allergies Allergy Unverified 07/17/21 13:32 Home Medications Medication Instructions Recorded Confirmed Last Taken Type Prednisone [predniSONE 10 mg 10 mg PO .TAPER #1 tab.ds.pk 03/11/20 Unknown Rx (6-Day Pack, 21 Tabs)] Promethazine [Phenergan] 25 mg PO Q6HR PRN #20 tab 03/11/20 Unknown Rx Azithromycin [Zithromax Z-MAGGIE] 250 mg PO DAILY #6 tab 07/03/21 Unknown Rx Benzonatate [Tessalon Perles] 100 mg PO Q8HR PRN #20 capsule 07/03/21 Unknown Rx Ondansetron [Zofran Odt] 4 mg PO Q8HR PRN #15 tab.rapdis 07/03/21 Unknown Rx Amoxicillin/Potassium Clav 1 each PO BID #14 10/31/21 Unknown Rx [Augmentin 875-125 Tablet] Neomy/Polymyx B/Hc Otic Susp 4 drops OTIC TID #1 bottle 10/31/21 Unknown Rx [Cortisporin (Otic) Susp] Active Meds: Active Medications Acetaminophen (Acetaminophen 325 Mg Tab) 650 mg PO Q6H PRN PRN Reason: Pain MILD(1-3)/Fever >100.5/ADAMS CALC GLUCONATE 1GM/NS 100 ML (Calcium Gluonate/Ns 1,000mg/100ml) 1 gm in 100 mls @ 37.5 mls/hr IV ONCE ONE Stop: 11/17/21 07:39 Last Admin: 11/17/21 05:19 Dose: 37.5 mls/hr Dopamine HCl/Dextrose (Dopamine 800 Mg/D5w 250ml) 800 mg in 250 mls @ 3.062 mls/hr IV TITR ONE; Protocol Stop: 11/20/21 15:17 Last Titration: 11/17/21 06:57 Dose: 10 mcg/kg/min, 15.309 mls/hr Dextrose/Sodium Chloride (D5ns) 1,000 mls @ 150 mls/hr IV DIRECT PARI Oxycodone/Acetaminophen (Oxycodone /Acetaminophen 5-325mg Tab) 1 tab PO Q6H PRN PRN Reason: Pain, Moderate (4-6) Sodium Chloride (Sodium Chloride 0.9% 10 Ml Flush Syringe) 10 ml IV BID PARI Sodium Chloride (Sodium Chloride 0.9% 10 Ml Flush Syringe) 10 ml IV PRN PRN PRN Reason: LINE FLUSH Review of Systems Cardiovascular: syncope Gastrointestinal: nausea, vomiting Exam - Physical Exam Narrative exam: Physical Exam: VITAL SIGNS: Reviewed. Hypotensive on encounter 82/53. Passive right leg raise maneuver demonstrates improved blood pressure 96/62 GENERAL: The patient appears normally developed, Vital signs as documented. HEAD: No signs of head trauma. EYES: Pupils are equal. Extraocular motions intact. EARS: Hearing grossly intact. MOUTH: Oropharynx is normal. NECK: No adenopathy, no JVD. CHEST: Chest with clear breath sounds bilaterally. No wheezes, rales, or rhonchi. CARDIAC: Regular rate and rhythm. S1 and S2, without murmurs, gallops, or rubs. VASCULAR: No Edema. Peripheral pulses normal and equal in all extremities. ABDOMEN: Soft, non tender and non distended. No rebound or guarding, and no masses palpated. Bowel Sounds normal. MUSCULOSKELETAL: Good range of motion of all major joints. Extremities without clubbing, cyanosis or edema. NEUROLOGIC EXAM: Alert and oriented x 4. no focal sensory or strength deficits. PSYCHIATRIC: Mood normal. SKIN: detail exam as documented in skin assessment - Constitutional Vitals: Temp Pulse Resp BP Pulse Ox 89 18 77/36 98 11/17/21 05:31 11/17/21 05:31 11/17/21 05:31 11/17/21 05:31 HEART Score - HEART Score Troponin: Troponin T < 0.010 ng/mL (0.00-0.029) 11/17/21 01:21 Results - Labs CBC & Chem 7: 11/17/21 01:21 11/17/21 12:21 Labs: Laboratory Last Values WBC 7.2 K/mm3 (4.5-11.0) 11/17/21 01:21 RBC 3.58 M/mm3 (3.65-5.03) L 11/17/21 01:21 Hgb 10.8 gm/dl (11.8-15.2) L 11/17/21 01:21 Hct 33.1 % (35.5-45.6) L 11/17/21 01:21 MCV 92 fl (84-94) 11/17/21 01:21 MCH 30 pg (28-32) 11/17/21 01:21 MCHC 33 % (32-34) 11/17/21 01:21 RDW 13.3 % (13.2-15.2) 11/17/21 01:21 Plt Count 296 K/mm3 (140-440) 11/17/21 01:21 Lymph % (Auto) 35.6 % (13.4-35.0) H 11/17/21 01:21 [place] % (Auto) 12.4 % (0.0-7.3) H 11/17/21 01:21 Eos % (Auto) 1.3 % (0.0-4.3) 11/17/21 01:21 Baso % (Auto) 0.8 % (0.0-1.8) 11/17/21 01:21 Lymph # (Auto) 2.6 K/mm3 (1.2-5.4) 11/17/21 01:21 [place] # (Auto) 0.9 K/mm3 (0.0-0.8) H 11/17/21 01:21 Eos # (Auto) 0.1 K/mm3 (0.0-0.4) 11/17/21 01:21 Baso # (Auto) 0.1 K/mm3 (0.0-0.1) 11/17/21 01:21 Seg Neutrophils % 49.9 % (40.0-70.0) 11/17/21 01:21 Seg Neutrophils # 3.6 K/mm3 (1.8-7.7) 11/17/21 01:21 PT 14.3 Sec. (12.2-14.9) 11/17/21 01:21 INR 1.00 (0.87-1.13) 11/17/21 01:21 APTT 25.6 Sec. (24.2-36.6) 11/17/21 01:21 Sodium 139 mmol/L (137-145) 11/17/21 01:21 Potassium 6.0 mmol/L (3.6-5.0) H 11/17/21 01:21 Chloride 99.8 mmol/L (98-107) 11/17/21 01:21 Carbon Dioxide 25 mmol/L (22-30) 11/17/21 01:21 Anion Gap 20 mmol/L 11/17/21 01:21 BUN 34 mg/dL (9-20) H 11/17/21 01:21 Creatinine 2.5 mg/dL (0.8-1.3) H 11/17/21 01:21 Estimated GFR 27 ml/min 11/17/21 01:21 BUN/Creatinine Ratio 14 % 11/17/21 01:21 Glucose 61 mg/dL (75-100) L 11/17/21 01:21 Lactic Acid 1.40 mmol/L (0.7-2.0) 11/17/21 01:21 Calcium 9.5 mg/dL (8.4-10.2) 11/17/21 01:21 Magnesium 2.20 mg/dL (1.7-2.3) 11/17/21 01:21 Total Bilirubin 0.20 mg/dL (0.1-1.2) 11/17/21 01:21 AST 22 units/L (5-40) 11/17/21 01:21 ALT 14 units/L (7-56) 11/17/21 01:21 Alkaline Phosphatase 62 units/L (35-129) 11/17/21 01:21 Total Creatine Kinase 325 units/L (55-170) H 11/17/21 01:21 CK-MB (CK-2) 6.7 ng/mL (0.0-4.0) H 11/17/21 01:21 CK-MB (CK-2) Rel Index 2.0 (0-4) 11/17/21 01:21 Troponin T < 0.010 ng/mL (0.00-0.029) 11/17/21 01:21 NT-Pro-B Natriuret Pep 275.1 pg/mL (0-900) 11/17/21 01:21 Total Protein 7.0 g/dL (6.3-8.2) 11/17/21 01:21 Albumin 4.3 g/dL (3.9-5) 11/17/21 01:21 Albumin/Globulin Ratio 1.6 % 11/17/21 01:21 TSH 7.250 mlU/mL (0.270-4.200) H 11/17/21 01:21 Free T4 1.24 ng/dL (0.76-1.46) 11/17/21 01:21 Blood Type A POSITIVE 11/17/21 01:30 Antibody Screen Negative 11/17/21 01:30 Microbiology: Microbiology 11/17/21 01:58 Peripheral/Venous Blood Culture - Preliminary Culture in Progress 11/17/21 01:21 Peripheral/Venous Blood Culture - Preliminary Culture in Progress Assessment and Plan Assessment and plan: #Hypovolemic shock - can d/c dopamine - needs volume, positive passive leg raise test (82/53 --> 96/60) - bolus ordered, will reassess. #Syncope - doubt cardiogenic, no prior cardiac hx. - orthostatics ordered. - echo pending. #Acute kidney injury secondary to prerenal azotemia - cr: 2.5, likely hypovolemia - IVF - nephrology following #Hyperkalemia - K=6, hyperkalemia cocktail given - repeat K at noon #Medication overdose - on multiple antihtn including clonidine 0.3 mg po tid. States he may have taken additional doses of meds. -Hold antihypertensives at this time #Essential hypertension Hold home antihypertensives at this time #Acute gastroenteritis - mult episodes of vomiting prior to syncopal episode. #Advance care planning Disease education conducted, care plan discussed, diagnoses discussed, prognosis discussed, patient is full code, patient acknowledges understanding and agree with care plan, +30 minutes. Dispo: Correct Electrolyte abnl and replete volume. Monitor for renal fx improvement. Likely d/c tomorrow. The high probability of a clinically significant, sudden or life threatening deterioration of the [multi] system(s) required my full and direct attention, intervention and personal management. The aggregate critical care time was [60] minutes. This time is in addition to time spent performing reported procedures but includes the following: [x] Data Review and interpretation [x] Patient assessment and monitoring of vital signs [x] Documentation [x] Medication orders and management
[2021-11-17] MEDS ORDERED: ACETAMINOPHEN 325 MG TAB PO PRN (08:00)
[2021-11-17] MEDS ORDERED: oxyCODONE /ACETAMINOPHEN 5-325MG TAB PO PRN (08:00)
--- NOTE | 2021-11-17 08:36 | Consultation ---
History of Present Illness - Reason for Consult Consult date: 11/17/21 acute renal failure - History of Present Illness Patient is a 51-year-old male was admitted for dizziness and syncope. he was found to have elevated K and creatinine and was given hyperkalemia treatment. Renal consult was requested for management of AKKI and elevated K Medications and Allergies Allergies Allergy/AdvReac Type Severity Reaction Status Date / Time No Known Allergies Allergy Unverified 07/17/21 13:32 Home Medications Medication Instructions Recorded Confirmed Last Taken Type Prednisone [predniSONE 10 mg 10 mg PO .TAPER #1 tab.ds.pk 03/11/20 Unknown Rx (6-Day Pack, 21 Tabs)] Promethazine [Phenergan] 25 mg PO Q6HR PRN #20 tab 03/11/20 Unknown Rx Azithromycin [Zithromax Z-MAGGIE] 250 mg PO DAILY #6 tab 07/03/21 Unknown Rx Benzonatate [Tessalon Perles] 100 mg PO Q8HR PRN #20 capsule 07/03/21 Unknown R x Ondansetron [Zofran Odt] 4 mg PO Q8HR PRN #15 tab.rapdis 07/03/21 Unknown Rx Amoxicillin/Potassium Clav 1 each PO BID #14 10/31/21 Unknown Rx [Augmentin 875-125 Tablet] Neomy/Polymyx B/Hc Otic Susp 4 drops OTIC TID #1 bottle 10/31/21 Unknown Rx [Cortisporin (Otic) Susp] Active Meds: Active Medications Acetaminophen (Acetaminophen 325 Mg Tab) 650 mg PO Q6H PRN PRN Reason: Pain MILD(1-3)/Fever >100.5/ADAMS Dopamine HCl/Dextrose (Dopamine 800 Mg/D5w 250ml) 800 mg in 250 mls @ 3.062 mls/hr IV TITR ONE; Protocol Stop: 11/20/21 15:17 Last Titration: 11/17/21 08:08 Dose: 14 mcg/kg/min, 21.432 mls/hr Dextrose/Sodium Chloride (D5ns) 1,000 mls @ 150 mls/hr IV DIRECT PARI Oxycodone/Acetaminophen (Oxycodone /Acetaminophen 5-325mg Tab) 1 tab PO Q6H PRN PRN Reason: Pain, Moderate (4-6) Sodium Chloride (Sodium Chloride 0.9% 10 Ml Flush Syringe) 10 ml IV BID PARI Sodium Chloride (Sodium Chloride 0.9% 10 Ml Flush Syringe) 10 ml IV PRN PRN PRN Reason: LINE FLUSH Exam - Vital Signs Vital signs: Vital Signs Pulse Resp BP Pulse Ox 46 L 16 72/ 98 11/17/21 00:43 11/17/21 00:43 11/17/21 00:43 11/17/21 00:43 Results - Lab Results 11/17/21 01:21 11/17/21 01:21 Most recent lab results Calcium 9.5 mg/dL (8.4-10.2) 11/17/21 01:21 Magnesium 2.20 mg/dL (1.7-2.3) 11/17/21 01:21 Assessment and Plan Hypotension Acute kidney injury Hyperkalemia Bradycardia will repeat BMP this afternoon after hyperkalemia treatment was compleieted will check renal USwill check urine lytes cont NS renally dose meds strict I&O daily weight no indication for HEALTHCARE ADMINISTRATION INTERN
[2021-11-17] MEDS ORDERED: HEPARIN 5,000 UNIT/1 ML VIAL SUB-Q SCH (10:00)
--- NOTE | 2021-11-17 10:57 | Electrocardiograph Report ---
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
--- NOTE | 2021-11-17 11:19 | Consultation ---
History of Present Illness - Reason for Consult Consult date: 11/17/21 Medications and Allergies Allergies Allergy/AdvReac Type Severity Reaction Status Date / Time No Known Allergies Allergy Unverified 07/17/21 13:32 Home Medications Medication Instructions Recorded Confirmed Last Taken Type Prednisone [predniSONE 10 mg 10 mg PO .TAPER #1 tab.ds.pk 03/11/20 Unknown Rx (6-Day Pack, 21 Tabs)] Promethazine [Phenergan] 25 mg PO Q6HR PRN #20 tab 03/11/20 Unknown Rx Azithromycin [Zithromax Z-MAGGIE] 250 mg PO DAILY #6 tab 07/03/21 Unknown Rx Benzonatate [Tessalon Perles] 100 mg PO Q8HR PRN #20 capsule 07/03/21 Unknown Rx Ondansetron [Zofran Odt] 4 mg PO Q8HR PRN #15 tab.rapdis 07/03/21 Unknown Rx Amoxicillin/Potassium Clav 1 each PO BID #14 10/31/21 Unknown Rx [Augmentin 875-125 Tablet] Neomy/Polymyx B/Hc Otic Susp 4 drops OTIC TID #1 bottle 10/31/21 Unknown Rx [Cortisporin (Otic) Susp] Active Meds: Active Medications Acetaminophen (Acetaminophen 325 Mg Tab) 650 mg PO Q6H PRN PRN Reason: Pain MILD(1-3)/Fever >100.5/ADAMS Dopamine HCl/Dextrose (Dopamine 800 Mg/D5w 250ml) 800 mg in 250 mls @ 3.062 mls/hr IV TITR ONE; Protocol Stop: 11/20/21 15:17 Last Titration: 11/17/21 09:15 Dose: 0 mcg/kg/min, 0 mls/hr Dextrose/Sodium Chloride (D5ns) 1,000 mls @ 150 mls/hr IV DIRECT PARI Oxycodone/Acetaminophen (Oxycodone /Acetaminophen 5-325mg Tab) 1 tab PO Q6H PRN PRN Reason: Pain, Moderate (4-6) Sodium Chloride (Sodium Chloride 0.9% 10 Ml Flush Syringe) 10 ml IV BID PARI Last Admin: 11/17/21 10:56 Dose: 10 ml Sodium Chloride (Sodium Chloride 0.9% 10 Ml Flush Syringe) 10 ml IV PRN PRN PRN Reason: LINE FLUSH Exam - Constitutional Vitals: Temp Pulse Resp BP Pulse Ox 62 13 86/48 95 11/17/21 10:46 11/17/21 10:46 11/17/21 11:02 11/17/21 11:02 Results - Labs CBC & Chem 7: 11/17/21 01:21 11/17/21 01:21 Labs: Abnormal lab results 11/17/21 11/17/21 11/17/21 Range/Units 01:21 01:21 01:21 RBC 3.58 L (3.65-5.03) M/mm3 Hgb 10.8 L (11.8-15.2) gm/dl Hct 33.1 L (35.5-45.6) % Lymph % (Auto) 35.6 H (13.4-35.0) % [place] % (Auto) 12.4 H (0.0-7.3) % [place] # (Auto) 0.9 H (0.0-0.8) K/mm3 Potassium 6.0 H (3.6-5.0) mmol/L BUN 34 H (9-20) mg/dL Creatinine 2.5 H (0.8-1.3) mg/dL Glucose 61 L (75-100) mg/dL Total Creatine Kinase 325 H (55-170) units/L CK-MB (CK-2) 6.7 H (0.0-4.0) ng/mL TSH 7.250 H (0.270-4.200) mlU/mL 11/17/21 Range/Units 01:21 RBC (3.65-5.03) M/mm3 Hgb (11.8-15.2) gm/dl Hct (35.5-45.6) % Lymph % (Auto) (13.4-35.0) % [place] % (Auto) (0.0-7.3) % [place] # (Auto) (0.0-0.8) K/mm3 Potassium (3.6-5.0) mmol/L BUN (9-20) mg/dL Creatinine (0.8-1.3) mg/dL Glucose (75-100) mg/dL Total Creatine Kinase 325 H (55-170) units/L CK-MB (CK-2) (0.0-4.0) ng/mL TSH (0.270-4.200) mlU/mL Assessment and Plan 51 y/o man admitted with syncopal event, found to be hypotensive and bradycardia.
[2021-11-17 13:04] LABS: Calcium 8.6 mg/dL (8.4-10.2)
[2021-11-17] MEDS ORDERED: SODIUM CHLORIDE 0.9% 1000 ML 1,000 ML ONE (13:07)
[2021-11-17 14:43] VITALS: BP 103/67
--- NOTE | 2021-11-17 21:18 | Discharge Summary ---
Providers - Providers 11/17/21 05:45 Consult to Physician [CONS] Urgent Comment: Consulting Provider: PAT LOBO Physician Instructions: Reason For Exam: ICU admit 11/17/21 05:54 Consult to Physician [CONS] Urgent Comment: Consulting Provider: DAVID GALVAN Physician Instructions: Reason For Exam: Acute kidney injury, hyperkalemia Primary care physician: CODING CONSULTANT Hospitalization Condition: Fair Hospital course: HPI: 51-year-old male with past medical history of hypertension, ADHD, opioid dependence states that he had syncopal episode at approximately 1400 yesterday. Patient states that he felt as though his head was spinning and he had this weird feeling. Patient unable to appropriately describe this. He states that later on that evening he had an additional syncopal episode. Patient states that he awoke on the floor after this episode. He denied having chest pain, shortness of breath, abdominal pain. He did state he had some nausea and vomiting yesterday afternoon. He also states that he may have taken additional dose of his blood pressure medication. He states that he may have taken additional dose of clonidine 0.3 mg. Remainder of ROS negative except for state d above Hospital Course: Patient left against medical advice. Assessment of Plan: #Hypovolemic shock - can d/c dopamine - needs volume, positive passive leg raise test (82/53 --> 96/60) - bolus ordered, will reassess. #Syncope - doubt cardiogenic, no prior cardiac hx. - orthostatics ordered. - echo pending. #Acute kidney injury secondary to prerenal azotemia - cr: 2.5, likely hypovolemia - IVF - nephrology following #Hyperkalemia - K=6, hyperkalemia cocktail given - repeat K at noon #Medication overdose - on multiple antihtn including clonidine 0.3 mg po tid. States he may have taken additional doses of meds. -Hold antihypertensives at this time #Essential hypertension Hold home antihypertensives at this time #Acute gastroenteritis - mult episodes of vomiting prior to syncopal episode. #Advance care planning Disease education conducted, care plan discussed, diagnoses discussed, prognosis discussed, patient is full code, patient acknowledges understanding and agree with care plan, +30 minutes. Disposition: LEFT AGAINST MEDICAL ADVICE Final Discharge Diagnosis (Prints w/discharge instructions): hypovolemic shock, syncope Core Measure Documentation - Palliative Care Palliative Care/ Comfort Measures: Not Applicable - Core Measures Any of the following diagnoses?: none Exam - Physical Exam Narrative exam: Physical Exam: VITAL SIGNS: Reviewed. Hypotensive on encounter 82/53. Passive right leg raise maneuver demonstrates improved blood pressure 96/62 GENERAL: The patient appears normally developed, Vital signs as documented. HEAD: No signs of head trauma. EYES: Pupils are equal. Extraocular motions intact. EARS: Hearing grossly intact. MOUTH: Oropharynx is normal. NECK: No adenopathy, no JVD. CHEST: Chest with clear breath sounds bilaterally. No wheezes, rales, or rhonchi. CARDIAC: Regular rate and rhythm. S1 and S2, without murmurs, gallops, or rubs. VASCULAR: No Edema. Peripheral pulses normal and equal in all extremities. ABDOMEN: Soft, non tender and non distended. No rebound or guarding, and no masses palpated. Bowel Sounds normal. MUSCULOSKELETAL: Good range of motion of all major joints. Extremities without clubbing, cyanosis or edema. NEUROLOGIC EXAM: Alert and oriented x 4. no focal sensory or strength deficits. PSYCHIATRIC: Mood normal. SKIN: detail exam as documented in skin assessment - Constitutional Vitals: Temp Pulse Resp BP Pulse Ox 69 11 L 103/67 97 11/17/21 14:30 11/17/21 14:30 11/17/21 14:30 11/17/21 14:30 Plan Follow up with: PRIMARY CAREMD [Primary Care Provider] - 3-5 Days
== END 2021-11-17 14:46 | disposition left against medical advice (07) ==
LOC: ED 00:33 → UNDOADMIN 07:27 → CC1 07:27 → ED 14:46
DX: N17.9 Acute kidney failure, unspecified (principal); I95.9 Hypotension, unspecified; E87.5 Hyperkalemia; R00.1 Bradycardia, unspecified; I10 Essential (primary) hypertension; Z85.9 Personal history of malignant neoplasm, unspecified; Z87.891 Personal history of nicotine dependence
CPT/HCPCS: 36415; 70450; 71045; 80048; 80053; 82140; 82550; 82553; 82962; 83735; 83880; 84439; 84443; 84484; 85025; 85610; 85730; 86850; 86900; 86901; 87040; 93005; 94640; 96361; 96365; 96366; 96368; 96375; 96376; 99285; C8929; J0461; J0610; J1265; J2405; J3490; J7030; J7042; 93306; 94644; 99284; Q0162; Q9967; J1815